=== PATIENT | male | born 1985 | race Caucasian/White ===

== ENCOUNTER 2019-06-26 16:34 | Inpatient (IN) | payer SELFPAY ==
[2019-06-26] MEDS ORDERED: SODIUM CHLORIDE 1,000 ML IV STA (16:43)
--- NOTE | 2019-06-26 16:43 | PDOC ---
Rapid Medical Evaluation Time Seen by Provider: 06/26/19 16:41 Medical Evaluation: Allergies Allergy/AdvReac Type Severity Reaction Status Date / Time No Known Allergies Allergy Verified 10/09/11 05:36 06/26/19 16:41 CC: Intermittent epigastric pain x4 days PE: Diaphoretic. Abd SNTND Orders: labs, urine, EKG Patient will proceed to ER for further evaluation. Discharge Disposition - Diagnosis Epigastric abdominal pain - Referrals - Patient Instructions - Post Discharge Activity
[2019-06-26] MEDS ORDERED: MAG HYDROX/AL HYDROX/SIMETH 30 ML UNIT-DOSE CUP PO ONE (16:44)
[2019-06-26 17:15] LABS: BASO % 0.6 % (0-2.0); EOS % 0.9 % (0-4.5); HEMATOCRIT 46.8 % (35.4-49); HEMOGLOBIN 16.1 GM/dL (11.7-16.9); LYMPH % 9.5 % (8-40); MCH 27.6 pg (25.7-33.7); MCHC 34.4 g/dl (32.0-35.9); MEAN CELL VOLUME 80.3 fl (80-96); MEAN PLT VOLUME 9.6 fl (7.5-11.1); MONO % 7.2 % (3.8-10.2); NEUT % 81.8 % (42.8-82.8); PLATELET COUNT 239 K/MM3 (134-434); RBC 5.83 M/mm3 (4.00-5.60); RDW 13.6 % (11.9-15.9); WHITE BLOOD COUNT 15.9 K/mm3 (4.0-10.0)
[2019-06-26 17:19] LABS: EPI CELLS 1.8 /HPF (0-5/HPF); HYALINE CASTS 0 /lpf (0-8); PH,URINE 6.5 (5.0-8.0); URINE APPEARANCE CLEAR; URINE BILIRUBIN NEGATIVE (NEGATIVE); URINE COLOR YELLOW; URINE GLUCOSE (UA) 3+ (NEGATIVE); URINE KETONE TRACE (NEGATIVE); URINE LEUK ESTERASE NEGATIVE (NEGATIVE); URINE NITRITE NEGATIVE (NEGATIVE); URINE PROTEIN 2+ (NEGATIVE); URINE RBC 11 /hpf (0-4); URINE WBC 8 /hpf (0-5)
[2019-06-26] MEDS ORDERED: MAG HYDROX/AL HYDROX/SIMETH 30 ML UNIT-DOSE CUP ONE (17:32)
[2019-06-26 17:50] LABS: ALBUMIN 3.4 g/dl (3.4-5.0); ALK PHOS 129 U/L (45-117); ANION GAP 10 MMOL/L (8-16); BLOOD UREA NITROGEN 6.1 mg/dL (7-18); CALCIUM 8.8 mg/dL (8.5-10.1); CHLORIDE 95 mmol/L (98-107); CO2 28 mmol/L (21-32); CREATININE 0.9 mg/dL (0.55-1.3); GLUCOSE,RANDOM 321 mg/dL (74-106); LIPASE 136 U/L (73-393); POTASSIUM 3.6 mmol/L (3.5-5.1); SGOT/AST 28 U/L (15-37); SGPT/ALT 50 U/L (13-61); SODIUM 132 mmol/L (136-145); TOT PROT 7.9 g/dl (6.4-8.2)
[2019-06-26] MEDS ORDERED: ACETAMINOPHEN 1000 MG/100 ML VIAL (NON FORMULARY) IVPB ONE (17:50)
[2019-06-26] MEDS ORDERED: ACETAMINOPHEN INJECTION 100 ML IVPB ONE (18:07)
[2019-06-26] MEDS ORDERED: SODIUM CHLORIDE 0.9% 1000 ML INFUS.BAG IV ONE (18:10)
[2019-06-26 18:34] LABS: VENOUS PC02 39.3 mmHg (38-52); VENOUS PH 7.45 (7.31-7.41)
[2019-06-26 18:35] LABS: VENOUS PO2 < 49 mmHg (28-48)
--- NOTE | 2019-06-26 18:44 | PDOC ---
Documentation entered by Melissa Shin SCRIBE, acting as scribe for Araceli Guerra DO. Araceli Guerra, DO: This documentation has been prepared by the Kip brown Xhesika, SCRIBE, under my direction and personally reviewed by me in its entirety. I confirm that the documentation accurately reflects all work, treatment, procedures, and medical decision making performed by me. Attending Attestation - Resident Resident Name: Annette Richard - ED Attending Attestation I have performed the following: I have examined & evaluated the patient, The case was reviewed & discussed with the resident, I agree w/resident's findings & plan, Exceptions are as noted - HPI HPI: 06/26/19 18:20 The patient is a 34 year old male with no significant PMH of who presents to the emergency department for fever and RUQ pain x2 days. Patient states he endorses associated nbnb vomiting and nausea. Patient has not been able to have a full meal since Monday (4 days ago). The patient denies chest pain, shortness of breath, headache and dizziness. Denies chills, cough, diarrhea and constipation. Denies dysuria, frequency, urgency and hematuria. Allergies: NKDA - Physicial Exam PE: 06/26/19 18:24 GENERAL: Awake, alert, and fully oriented, in no acute distress. + diaphoretic sweating HEAD: No signs of trauma NECK: Normal ROM, supple, no lymphadenopathy, JVD, or masses LUNGS: Breath sounds equal, clear to auscultation bilaterally. No wheezes, and no crackles HEART: +tachycardia. Normal S1 and S2, no murmurs, rubs or gallops ABDOMEN: + Epigastric tenderness. + mild L CVA tenderness. Soft, normoactive bowel sounds. No guarding, no rebound. No masses EXTREMITIES: Normal range of motion, no edema. No clubbing or cyanosis. No cords, erythema, or tenderness NEUROLOGICAL: Cranial nerves II through XII grossly intact. Normal speech, normal gait SKIN: Warm, Dry, normal turgor, no rashes or lesions noted. - Critical Care Time Total Critical Care Time: 45 Critical Care Statement: The care of this patient involved high complexity decision making to prevent further life threatening deterioration of the patient 's condition and/or to evaluate & treat vital organ system(s) failure or risk of failure. - Medical Decision Making 06/26/19 18:41 I, Dr. Araceli Guerra, DO, attest that this document has been prepared under my direction and personally reviewed by me in its entirety. I further attest, that it accurately reflects all work, treatment, procedures and medical decision -making performed by me. a/p: 34yo male with fever today and 2 days of abd pain assoc with nausea/ vomiting today -labs sent from [facility] reviewed -pt with glu 321- concern for new onset dm -added on vbg and acetone and a1c -will start ivf hydraiton -bedside ultrasound of RUQ neg for acute biliary pathology -ua + blood, may be from dm -pt also with epigastric ttp -will hydrate, will give tylenol, will monitor and reassess 06/26/19 21:48 pt with new onset dm a1c 10 also with acute pancreatitis on ct pt updated on labs and ct findings npo ordered insulin ordered ivf running pt will need to be admitted microblog sent to [facility] for admission 06/26/19 22:20 case discussed with [facility] who accepts pt to service Discharge - Discharge Information Problems reviewed: Yes Clinical Impression/Diagnosis: Epigastric abdominal pain, Diabetes mellitus, new onset, Acute pancreatitis Condition: Guarded - Admission Yes - Follow up/Referral - Patient Discharge Instructions - Post Discharge Activity Heart Score/ECG Review - ECG Intrepretation Comment:: 06/26/19 18:44 sinus at tach at 120, nl axis, nl interval, t wave inversions III, abnl ekg
--- NOTE | 2019-06-26 18:45 | PDOC ---
History of Present Illness - General Chief Complaint: Pain Stated Complaint: CHEST PAIN Time Seen by Provider: 06/26/19 16:41 - History of Present Illness Initial Comments: 06/26/19 18:42 The patient is 34 year old male with no reported significant PMHx who presents to our ED c/o a two day h/o abdominal pain. Pain is epigastric, pulling, and intermittent. No association with food or movement; solo episode of NBNB vomiting earlier today. Subjective fevers/chills. Last full meal was an egg and cheese sandwich on Monday morning, states he vomited some soup this afternoon. Denies any associated dysuria/hematuria, shortness of breath, palpitations, chest pain, numbness/tingling. NKDA Surgical: none reported Past History - Past Medical History Allergies/Adverse Reactions: Allergies Allergy/AdvReac Type Severity Reaction Status Date / Time No Known Allergies Allergy Verified 06/26/19 16:55 Home Medications: Ambulatory Orders NK [No Known Home Medication] 06/26/19 COPD: No - Psycho Social/Smoking Cessation Hx Smoking Status: No Smoking History: Never smoked Number of Cigarettes Smoked Daily: 0 Information on smoking cessation initiated: No Hx Alcohol Use: No Drug/Substance Use Hx: No Review of Systems - Review of Systems Constitutional: Yes: Fever. No: Chills HEENTM: No: Recent change in vision Respiratory: No: Cough, Shortness of Breath Cardiac (ROS): No: Chest Pain, Lightheadedness, Palpitations ABD/GI: Yes: Vomiting, Abdominal cramping. No: Constipated, Diarrhea, Nausea : No: Burning, Hematuria *Physical Exam - Vital Signs Last Vital Signs Temp Pulse Resp BP Pulse Ox 100.2 F H 121 H 24 H 146/100 97 06/26/19 16:42 06/26/19 18:17 06/26/19 18:17 06/26/19 18:17 06/26/19 18:17 - Physical Exam General Appearance: Yes: Nourished, Appropriately Dressed, Obese HEENT: positive: Normal Voice, Hearing Grossly Normal Neck: positive: Trachea midline, Supple Respiratory/Chest: positive: Lungs Clear, Normal Breath Sounds. negative: Labored Respiration, Rapid RR Cardiovascular: positive: S1, S2. negative: JVD, Murmur Gastrointestinal/Abdominal: positive: Other (Epigastric TTP w/o peritoneal sign , (-) Crane's, mild L sided CVAT ) Extremity: positive: Normal Capillary Refill, Normal Inspection Integumentary: positive: Normal Color, Dry, Warm, Diaphoresis Neurologic: positive: carbon brush maker II-XII NML intact, Fully Oriented, Alert ED Treatment Course - LABORATORY CBC & Chemistry Diagram: 06/26/19 16:58 06/26/19 16:58 - ADDITIONAL ORDERS Additional order review: Laboratory Results 06/26/19 06/26/19 06/26/19 18:10 16:58 16:58 VBG pH 7.45 H POC VBG pCO2 39.3 POC VBG pO2 < 49 H VBG HCO3 27.2 VBG O2 Sat (Fredo) 65.3 L VBG Base Excess 3.6 H Sodium 132 L Potassium 3.6 Chloride 95 L Carbon Dioxide 28 Anion Gap 10 BUN 6.1 L Creatinine 0.9 Est GFR (CKD-EPI)AfAm 130.52 Est GFR (CKD-EPI)NonAf 112.62 Random Glucose 321 H Calcium 8.8 Total Bilirubin 1.0 AST 28 ALT 50 Alkaline Phosphatase 129 H Creatine Kinase 100 Troponin I < 0.02 Total Protein 7.9 Albumin 3.4 Lipase 136 Urine Color Yellow Urine Appearance Clear Urine pH 6.5 Ur Specific [place] 1.042 H Urine Protein 2+ H Urine Glucose (UA) 3+ H Urine Ketones Trace H Urine Blood 1+ H Urine Nitrite Negative Urine Bilirubin Negative Urine Urobilinogen 2.0 Ur Leukocyte Esterase Negative Urine WBC (Auto) 8 Urine RBC (Auto) 11 Urine Casts (Auto) 0 U Epithel Cells (Auto) 1.8 Urine Bacteria (Auto) 17.0 06/26/19 16:58 RBC 5.83 H MCV 80.3 MCHC 34.4 RDW 13.6 MPV 9.6 Neutrophils % 81.8 Lymphocytes % 9.5 Monocytes % 7.2 Eosinophils % 0.9 Basophils % 0.6 - Medications Given in the ED: ED Medications Discontinued Medications Generic Name Dose Route Start Last Admin Trade Name Freq PRN Reason Stop Dose Admin Acetaminophen 1,000 mg 06/26/19 17:50 06/26/19 18:19 Ofirmev Injection - IVPB 06/26/19 17:51 1,000 mg ONCE ONE Administration Al Hydroxide/Mg Hydroxide 30 ml 06/26/19 16:44 06/26/19 17:41 Mylanta Oral Suspension - PO 06/26/19 16:45 30 ml ONCE ONE Administration Sodium Chloride 1,000 mls @ 1,000 mls/hr 06/26/19 16:43 06/26/19 18:19 Normal Saline - IV 06/26/19 17:42 1,000 mls/hr ASDIR STA Administration Medical Decision Making - Medical Decision Making 06/26/19 18:50 34 year old male with no reported significant PMH presents with abdominal pain, solo episode of emesis. Tachycardic (124), Temperature (100.2) Abdominal TTP w/o peritoneal sign; ? R sided CVAT Labs ordered in triage include Lipase, Basic labs, Troponin. EKG pending. Frontal diagnosis: sepsis, r/o ACS, pancreatitis, biliary colic, appendicitis, colitis, gastritis, gastroenteritis. Consider PE - will fluid resuscitate, treat fever and then reassess. Will also hydrate, obtain blood cultures, CXR. Tylenol for fever. 06/26/19 19:25 Leukocytosis (15.9) BS 321 UA (+) ketones, (+) hematuria ? new onset DM vs renal stone VBG, Serum Acetone pending. RUQ POCUS shows no cholelithiasis, no pericholecystic fluid, no AGBW thickening. CTAP pending to evaluate for renal stone, other GI pathology. Patient signed out to Dr. Guerra for further management. Discharge - Discharge Information Problems reviewed: Yes Clinical Impression/Diagnosis: Epigastric abdominal pain Condition: Fair - Follow up/Referral - Patient Discharge Instructions - Post Discharge Activity
[2019-06-26] MEDS ORDERED: LACTATED RINGERS SOLUTION 1000 ML INFUS.BAG IV ONE (21:39)
[2019-06-26] MEDS ORDERED: INSULIN REGULAR HUMAN 100 UNITS/ML *VIAL SQ ONE (21:40)
--- NOTE | 2019-06-26 23:13 | HP ---
CHIEF COMPLAINT: abdominal pain PCP: none HISTORY OF PRESENT ILLNESS: 34 y.o. M no significant past medical history presenting with 04/03 midepigastric pain. Patient says the pain started after eating a posada egg and cheese on Monday06/23/19. The pain is intermittent and radiates to b/l back. He tried Tylenol at home with mild improvement of pain. There are no exacerbating factors. Pt says he has never taken NSAIDS and only uses tylenol for mild pains. Diet consist of mainly fried & fatty foods. On ROS, pt endorses decreased appetite, diaphoresis, chills, generalized weakness. Neg for weight changes/ CP/ nausea/ vomiting/ urinary or bowel changes / myalgias. ER course was notable for: (1) 2L NS; 1L LR (2) 1g IV tylenol (3)CT abd pel confirms acute pancreatitis Recent Travel: denies PAST MEDICAL HISTORY: none PAST SURGICAL HISTORY: none Social History: Lives w/ mom, dad, siblings. no sick contacts. works at [employer] Smoking: denies Alcohol: denies Drugs: denies Allergies No Known Allergies Allergy (Verified 06/26/19 16:55) FH: sister- lymphoma mom- DM HOME MEDICATIONS: Home Medications Medication Instructions Recorded NK [No Known Home Medication] 06/26/19 REVIEW OF SYSTEMS CONSTITUTIONAL: Absent: fever, chills, diaphoresis, generalized weakness, malaise, loss of appetite, weight change HEENT: Absent: rhinorrhea, nasal congestion, throat pain, throat swelling, difficulty swallowing, mouth swelling, ear pain, eye pain, visual changes CARDIOVASCULAR: Absent: chest pain, syncope, palpitations, irregular heart rate, lightheadedness , peripheral edema RESPIRATORY: Absent: cough, shortness of breath, dyspnea with exertion, orthopnea, wheezing, stridor, hemoptysis GASTROINTESTINAL: Absent: abdominal pain, abdominal distension, nausea, vomiting, diarrhea, constipation, melena, hematochezia GENITOURINARY: Absent: dysuria, frequency, urgency, hesitancy, hematuria, flank pain, genital pain MUSCULOSKELETAL: Absent: myalgia, arthralgia, joint swelling, back pain, neck pain SKIN: Absent: rash, itching, pallor HEMATOLOGIC/IMMUNOLOGIC: Absent: easy bleeding, easy bruising, lymphadenopathy, frequent infections ENDOCRINE: Absent: unexplained weight gain, unexplained weight loss, heat intolerance, cold intolerance NEUROLOGIC: Absent: headache, focal weakness or paresthesias, dizziness, unsteady gait, seizure, mental status changes, bladder or bowel incontinence PSYCHIATRIC: Absent: anxiety, depression, suicidal or homicidal ideation, hallucinations. PHYSICAL EXAMINATION Vital Signs - 24 hr 06/26/19 06/26/19 06/26/19 16:42 18:17 19:09 Temperature 100.2 F H Pulse Rate 124 H Pulse Rate [ 121 H 113 H Radial] Respiratory 19 24 H 24 H Rate Blood Pressure 122/80 Blood Pressure 146/100 140/77 [Left Arm] O2 Sat by Pulse 97 97 99 Oximetry (%) 06/26/19 22:23 Temperature 100.0 F H Pulse Rate Pulse Rate [ 100 H Radial] Respiratory 19 Rate Blood Pressure Blood Pressure 152/76 [Left Arm] O2 Sat by Pulse 99 Oximetry (%) GENERAL: AOx3 NAD. HEENT: No scleral icterus, no conjunctival injection, MMM LUNGS: Breath sounds equal, clear to auscultation bilaterally. No wheezes, and no crackles. No accessory muscle use. HEART: Regular rate and rhythm, normal S1 and S2 without murmur, rub or gallop. ABDOMEN: Obese. TTP midepigastric region. Soft, not distended, normoactive bowel sounds, no guarding, no rebound. No hepatomegaly or splenomegaly. [place] negative. MUSCULOSKELETAL: Normal range of motion at all joints. UPPER EXTREMITIES: 2+ pulses, warm, well-perfused. No cyanosis. No clubbing. No peripheral edema. LOWER EXTREMITIES: 2+ pulses, warm, well-perfused. No calf tenderness. No peripheral edema. PSYCHIATRIC: Cooperative. Good eye contact. Appropriate mood and affect. SKIN: Warm, dry, normal turgor, no rashes or lesions noted. Laboratory Results - last 24 hr 06/26/19 06/26/19 06/26/19 16:58 16:58 16:58 WBC 15.9 H RBC 5.83 H Hgb 16.1 Hct 46.8 MCV 80.3 MCH 27.6 MCHC 34.4 RDW 13.6 Plt Count 239 MPV 9.6 Absolute Neuts (auto) 13.0 H Neutrophils % 81.8 Lymphocytes % 9.5 Monocytes % 7.2 Eosinophils % 0.9 Basophils % 0.6 Nucleated RBC % 0 VBG pH POC VBG pCO2 POC VBG pO2 VBG HCO3 VBG O2 Sat (Fredo) VBG Base Excess Sodium 132 L Potassium 3.6 Chloride 95 L Carbon Dioxide 28 Anion Gap 10 BUN 6.1 L Creatinine 0.9 Est GFR (CKD-EPI)AfAm 130.52 Est GFR (CKD-EPI)NonAf 112.62 Random Glucose 321 H Hemoglobin A1c % Calcium 8.8 Total Bilirubin 1.0 AST 28 ALT 50 Alkaline Phosphatase 129 H Creatine Kinase 100 Troponin I < 0.02 Total Protein 7.9 Albumin 3.4 Lipase 136 Urine Color Yellow Urine Appearance Clear Urine pH 6.5 Ur Specific [place] 1.042 H Urine Protein 2+ H Urine Glucose (UA) 3+ H Urine Ketones Trace H Urine Blood 1+ H Urine Nitrite Negative Urine Bilirubin Negative Urine Urobilinogen 2.0 Ur Leukocyte Esterase Negative Urine WBC (Auto) 8 Urine RBC (Auto) 11 Urine Casts (Auto) 0 U Epithel Cells (Auto) 1.8 Urine Bacteria (Auto) 17.0 Acetone, Qual 06/26/19 06/26/19 06/26/19 18:10 18:10 18:10 WBC RBC Hgb Hct MCV MCH MCHC RDW Plt Count MPV Absolute Neuts (auto) Neutrophils % Lymphocytes % Monocytes % Eosinophils % Basophils % Nucleated RBC % VBG pH 7.45 H POC VBG pCO2 39.3 POC VBG pO2 < 49 H VBG HCO3 27.2 VBG O2 Sat (Fredo) 65.3 L VBG Base Excess 3.6 H Sodium Potassium Chloride Carbon Dioxide Anion Gap BUN Creatinine Est GFR (CKD-EPI)AfAm Est GFR (CKD-EPI)NonAf Random Glucose Hemoglobin A1c % 10.9 H Calcium Total Bilirubin AST ALT Alkaline Phosphatase Creatine Kinase Troponin I Total Protein Albumin Lipase Urine Color Urine Appearance Urine pH Ur Specific [place] Urine Protein Urine Glucose (UA) Urine Ketones Urine Blood Urine Nitrite Urine Bilirubin Urine Urobilinogen Ur Leukocyte Esterase Urine WBC (Auto) Urine RBC (Auto) Urine Casts (Auto) U Epithel Cells (Auto) Urine Bacteria (Auto) Acetone, Qual Negative ASSESSMENT/PLAN: 34 y.o. M no significant PMH presenting for 7/10 midepigastric pain. #Acute pancreatitis -CT abd/ pel: Acute pancreatitis. dffuse hepatic steatosis. Mild splenomegaly. 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 - New Patient This patient is new to me today: Yes Date on this admission: 06/27/19 - Critical Care Critical Care patient: Yes Total Critical Care Time (in minutes): 42 Critical Care Statement: The care of this patient involved high complexity decision making to prevent further life threatening deterioration of the patient 's condition and/or to evaluate & treat vital organ system(s) failure or risk of failure. ATTENDING PHYSICIAN STATEMENT I saw and evaluated the patient. I reviewed the resident's note and discussed the case with the resident. I agree with the resident's findings and plan as documented. SUBJECTIVE: OBJECTIVE: ASSESSMENT AND PLAN:
[2019-06-26] MEDS ORDERED: LACTATED RINGERS SOLUTION 1,000 ML IV SCH (23:30)
[2019-06-27] MEDS ORDERED: INSULIN SLIDING SCALE (NOVOLOG) 1 VIAL SQ SCH ×3 (00:30→07:00)
[2019-06-27 00:43] LABS: COCAINE, UR NEGATIVE ng/ml (CUTOFF=300); METHADONE, UR NEGATIVE ng/ml (CUTOFF=300); OPIATES, URI NEGATIVE ng/ml (CUTOFF=300); PHENCYCLIDINE,URINE NEGATIVE ng/ml (CUTOFF=25); URINE AMPHETAMINES NEGATIVE ng/ml (CUTOFF=500); URINE BARBITURATES NEGATIVE ng/ml (CUTOFF=200); URINE BENZODIAZEPINES NEGATIVE ng/ml (CUTOFF=200)
[2019-06-27 01:04] LABS: CHOLESTEROL 331 mg/dL (50-200); HDL CHOLESTEROL 20 mg/dL (40-60); LDL CHOLESTEROL (ONLY SJRH) 88 mg/dL (5-100); TRIGLYCERIDES 1139 mg/dL (0-150)
[2019-06-27] MEDS ORDERED: INSULIN REGULAR 100 UNITS in SODIUM CHLORIDE 99 ML IVPB SCH ×2 (01:30→06:38)
--- NOTE | 2019-06-27 01:34 | PN ---
Teaching Attending Note Name of Resident: Catherine Sanchez ATTENDING PHYSICIAN STATEMENT I saw and evaluated the patient. I reviewed the resident's note and discussed the case with the resident. I agree with the resident's findings and plan as documented. SUBJECTIVE: 34yo morbidly obese man whose diet consists mainly of fatty foods c/o epigastric abdominal pain since this past monday with some slight radiation to his back. Pain was worsened after he ate chicken wings wed . No nausea , vomiting, or diarrhea. Reports some intermittent subjective fevers and sweats. No sick contacts or recent travels, works at [employer]. No cough, dysuria, or diarrhea. Denied etoh abuse, gallstones, abd trauma. Pt does not regularly follow with PCP and does not remember last Dr. visit. OBJECTIVE: Last Vital Signs Temp Pulse Resp BP Pulse Ox 100.0 F H 76 19 146/60 99 06/27/19 01:28 06/27/19 01:28 06/27/19 01:28 06/27/19 01:28 06/27/19 01:28 gen- morbidly obese, diaphoretic heent -atraumatic chest clear abdomen- soft, decreased bowel sounds, epigastric tenderness Abnormal Lab Results 06/26/19 06/26/19 06/26/19 16:58 16:58 16:58 WBC 15.9 H RBC 5.83 H Absolute Neuts (auto) 13.0 H VBG pH POC VBG pO2 VBG O2 Sat (Fredo) VBG Base Excess Sodium 132 L Chloride 95 L BUN 6.1 L Random Glucose 321 H Hemoglobin A1c % Alkaline Phosphatase 129 H Triglycerides Cholesterol HDL Cholesterol Ur Specific [place] 1.042 H Urine Protein 2+ H Urine Glucose (UA) 3+ H Urine Ketones Trace H Urine Blood 1+ H 06/26/19 06/26/19 06/27/19 18:10 18:10 00:10 WBC RBC Absolute Neuts (auto) VBG pH 7.45 H POC VBG pO2 < 49 H VBG O2 Sat (Fredo) 65.3 L VBG Base Excess 3.6 H Sodium Chloride BUN Random Glucose Hemoglobin A1c % 10.9 H Alkaline Phosphatase Triglycerides 1139 H Cholesterol 331 H HDL Cholesterol 20 L Ur Specific [place] Urine Protein Urine Glucose (UA) Urine Ketones Urine Blood imaging reviewed- abdomen/pelvis CT- acute pancreatitis, fatty liver, splenomegally. ASSESSMENT AND PLAN: #Critically ill 34 yo morbidly obese man with acute pancreatitis secondary to hypertriglyceridemia. Newly discovered diabetes mellitus -a1c -10.9. Severe hyperglycemia, but do not suspect DKA at this time. Likely metabolic syndrome. Fatty liver secondary to high fat diet. Pseudohyponatremia secondary to hyperglycemia. 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 May be from pancreatitis. -blood cultures, urine culture sent -monitor off antibiotics -if worsening wbc count or fever spike, would cover with broad spectrum antibiotics -dvt ppx -35 mins spent on this critically ill patient
--- NOTE | 2019-06-27 01:42 | CONSULT ---
Consultation: REQUESTING PROVIDER: Dr Guerra CONSULT REQUEST: We have been asked to medically evaluate this patient for ( Pancreatitis). HISTORY OF PRESENT ILLNESS: Pt is a 34 y/o M with no known past medical history who presented to [facility] due to abdominal pain. Pain commenced this past Monday after eating a posada and egg sandwich; pain located in the mid-epigastrium; pain radiates to his back and is described as a "squeezing" pain. OTC medications have provided no relief. Pain is associated w/ a decreased appetite as well as one episode of vomiting. Denies ever experiencing these symptoms before. ICU team consulted as patient's Triglyceride levels was 1139 and CTAP revealed Pancreatitis. REVIEW OF SYSTEMS: CONSTITUTIONAL: Absent: fever, chills, diaphoresis, generalized weakness, malaise, loss of appetite, weight change HEENT: Absent: rhinorrhea, nasal congestion, throat pain, throat swelling, difficulty swallowing, mouth swelling, ear pain, eye pain, visual changes CARDIOVASCULAR: Absent: chest pain, syncope, palpitations, irregular heart rate, lightheadedness , peripheral edema RESPIRATORY: Absent: cough, shortness of breath, dyspnea with exertion, orthopnea, wheezing, stridor, hemoptysis GASTROINTESTINAL: PRESENT: abdominal pain, nausea, vomiting GENITOURINARY: Absent: dysuria, frequency, urgency, hesitancy, hematuria, flank pain, genital pain MUSCULOSKELETAL: Absent: myalgia, arthralgia, joint swelling, back pain, neck pain SKIN: Absent: rash, itching, pallor HEMATOLOGIC/IMMUNOLOGIC: Absent: easy bleeding, easy bruising, lymphadenopathy, frequent infections ENDOCRINE: Absent: unexplained weight gain, unexplained weight loss, heat intolerance, cold intolerance NEUROLOGIC: Absent: headache, focal weakness or paresthesias, dizziness, unsteady gait, seizure, mental status changes, bladder or bowel incontinence PSYCHIATRIC: Absent: anxiety, depression, suicidal or homicidal ideation, hallucinations. PHYSICAL EXAMINATION Vital Signs - 24 hr 06/26/19 06/26/19 06/26/19 16:42 18:17 19:09 Temperature 100.2 F H Pulse Rate 124 H Pulse Rate [ 121 H 113 H Radial] Respiratory 19 24 H 24 H Rate Blood Pressure 122/80 Blood Pressure 146/100 140/77 [Left Arm] O2 Sat by Pulse 97 97 99 Oximetry (%) 06/26/19 06/27/19 06/27/19 22:23 00:18 01:28 Temperature 100.0 F H 100.0 F H Pulse Rate Pulse Rate [ 100 H 76 Radial] Respiratory 19 19 Rate Blood Pressure Blood Pressure 152/76 146/60 [Left Arm] O2 Sat by Pulse 99 99 99 Oximetry (%) GENERAL: NAD HEAD: AT/NC EYES: EOMI Sclera clear EARS, NOSE, THROAT: MMM LUNGS: CTAB HEART: RRR S1S2 ABDOMEN: TTP mid-epigastrium, No guarding or rigidity LOWER EXTREMITIES:No CCE NEUROLOGICAL: Cranial nerves II-XII intact. PSYCHIATRIC: Cooperative. Good eye contact. Appropriate mood and affect. SKIN: Warm, dry, normal turgor, no rashes or lesions noted. Laboratory Results - last 24 hr 06/26/19 06/26/19 06/26/19 16:58 16:58 16:58 WBC 15.9 H RBC 5.83 H Hgb 16.1 Hct 46.8 MCV 80.3 MCH 27.6 MCHC 34.4 RDW 13.6 Plt Count 239 MPV 9.6 Absolute Neuts (auto) 13.0 H Neutrophils % 81.8 Lymphocytes % 9.5 Monocytes % 7.2 Eosinophils % 0.9 Basophils % 0.6 Nucleated RBC % 0 VBG pH POC VBG pCO2 POC VBG pO2 VBG HCO3 VBG O2 Sat (Fredo) VBG Base Excess Sodium 132 L Potassium 3.6 Chloride 95 L Carbon Dioxide 28 Anion Gap 10 BUN 6.1 L Creatinine 0.9 Est GFR (CKD-EPI)AfAm 130.52 Est GFR (CKD-EPI)NonAf 112.62 Random Glucose 321 H Hemoglobin A1c % Calcium 8.8 Total Bilirubin 1.0 AST 28 ALT 50 Alkaline Phosphatase 129 H Creatine Kinase 100 Troponin I < 0.02 Total Protein 7.9 Albumin 3.4 Triglycerides Cholesterol Total LDL Cholesterol HDL Cholesterol Lipase 136 Urine Color Yellow Urine Appearance Clear Urine pH 6.5 Ur Specific [place] 1.042 H Urine Protein 2+ H Urine Glucose (UA) 3+ H Urine Ketones Trace H Urine Blood 1+ H Urine Nitrite Negative Urine Bilirubin Negative Urine Urobilinogen 2.0 Ur Leukocyte Esterase Negative Urine WBC (Auto) 8 Urine RBC (Auto) 11 Urine Casts (Auto) 0 U Epithel Cells (Auto) 1.8 Urine Bacteria (Auto) 17.0 Opiates Screen Methadone Screen Barbiturate Screen Phencyclidine Screen Ur Amphetamines Screen MDMA (Ecstasy) Screen Benzodiazepines Screen Cocaine Screen U Marijuana (THC) Screen Alcohol, Quantitative Acetone, Qual 06/26/19 06/26/19 06/26/19 18:10 18:10 18:10 WBC RBC Hgb Hct MCV MCH MCHC RDW Plt Count MPV Absolute Neuts (auto) Neutrophils % Lymphocytes % Monocytes % Eosinophils % Basophils % Nucleated RBC % VBG pH 7.45 H POC VBG pCO2 39.3 POC VBG pO2 < 49 H VBG HCO3 27.2 VBG O2 Sat (Fredo) 65.3 L VBG Base Excess 3.6 H Sodium Potassium Chloride Carbon Dioxide Anion Gap BUN Creatinine Est GFR (CKD-EPI)AfAm Est GFR (CKD-EPI)NonAf Random Glucose Hemoglobin A1c % 10.9 H Calcium Total Bilirubin AST ALT Alkaline Phosphatase Creatine Kinase Troponin I Total Protein Albumin Triglycerides Cholesterol Total LDL Cholesterol HDL Cholesterol Lipase Urine Color Urine Appearance Urine pH Ur Specific [place] Urine Protein Urine Glucose (UA) Urine Ketones Urine Blood Urine Nitrite Urine Bilirubin Urine Urobilinogen Ur Leukocyte Esterase Urine WBC (Auto) Urine RBC (Auto) Urine Casts (Auto) U Epithel Cells (Auto) Urine Bacteria (Auto) Opiates Screen Methadone Screen Barbiturate Screen Phencyclidine Screen Ur Amphetamines Screen MDMA (Ecstasy) Screen Benzodiazepines Screen Cocaine Screen U Marijuana (THC) Screen Alcohol, Quantitative Acetone, Qual Negative 06/27/19 06/27/19 06/27/19 00:10 00:10 00:20 WBC RBC Hgb Hct MCV MCH MCHC RDW Plt Count MPV Absolute Neuts (auto) Neutrophils % Lymphocytes % Monocytes % Eosinophils % Basophils % Nucleated RBC % VBG pH POC VBG pCO2 POC VBG pO2 VBG HCO3 VBG O2 Sat (Fredo) VBG Base Excess Sodium Potassium Chloride Carbon Dioxide Anion Gap BUN Creatinine Est GFR (CKD-EPI)AfAm Est GFR (CKD-EPI)NonAf Random Glucose Hemoglobin A1c % Calcium Total Bilirubin AST ALT Alkaline Phosphatase Creatine Kinase Troponin I Total Protein Albumin Triglycerides 1139 H Cholesterol 331 H Total LDL Cholesterol 88 HDL Cholesterol 20 L Lipase Urine Color Urine Appearance Urine pH Ur Specific [place] Urine Protein Urine Glucose (UA) Urine Ketones Urine Blood Urine Nitrite Urine Bilirubin Urine Urobilinogen Ur Leukocyte Esterase Urine WBC (Auto) Urine RBC (Auto) Urine Casts (Auto) U Epithel Cells (Auto) Urine Bacteria (Auto) Opiates Screen Negative Methadone Screen Negative Barbiturate Screen Negative Phencyclidine Screen Negative Ur Amphetamines Screen Negative MDMA (Ecstasy) Screen Negative Benzodiazepines Screen Negative Cocaine Screen Negative U Marijuana (THC) Screen Negative Alcohol, Quantitative < 3.0 Cancelled Acetone, Qual Active Medications Generic Name Dose Route Start Last Admin Trade Name Freq PRN Reason Stop Dose Admin Chlorhexidine Gluconate 1 applic 06/27/19 22:00 Hibiclens For Decolonization - TP HS JENELLE Enoxaparin Sodium 40 mg 06/27/19 10:00 Lovenox - SQ DAILY JENELLE Lactated Ringer's 1,000 mls @ 200 mls/hr 06/26/19 23:30 06/26/19 23:55 Lactated Ringers Solution IV 200 mls/hr ASDIR JENELLE Administration Insulin Human Regular 100 100 mls @ 12.47 mls/hr 06/27/19 01:30 units/ Sodium Chloride IVPB TITR JENELLE Protocol 0.1 UNITS/KG/HR Insulin Aspart 0 vial 06/27/19 00:30 Novolog Vial Sliding Scale - SQ Q6H [facility] Protocol Mupirocin 1 applic 06/27/19 10:00 Bactroban Ointment (For Decolonization) - NS 07/02/19 09:59 BID JENELLE Pantoprazole Sodium 40 mg 06/27/19 10:00 Protonix Iv IVPUSH DAILY [facility] ASSESSMENT/PLAN: Pt is a 34 y/o M with no known past medical history who presented to [facility] due to abdominal pain. Pt found to have hypertriglyceridemia induced Pancreatitis. #ENDO- Pancreatitis 2/2 Hypertriglyceridemia -Triglyceride level 1162 -CTAP Acute Pancreatitis -Insulin gtt -BGM q1H -D5-LR w/ 20 mEqKCL -Goal to bring Triglyceride level < 500 -Triglyceride levels Q12H -If non-resolving, consider transfer for apheresis -CBC, CMP 6 am. -Ofirmev and Morphine PRN for pain #FEN D5-LR w/ 20 mEq KCL Monitor Electrolytes NPO #DVT ppx: Lovenox 40 SQ Daily Dispo: We will continue to follow the patient. Thank you for this consultative opportunity. Visit type - Emergency Visit Emergency Visit: Yes ED Registration Date: 06/26/19 Care time: The patient presented to the Emergency Department on the above date and was hospitalized for further evaluation of their emergent condition. - New Patient This patient is new to me today: Yes Date on this admission: 06/28/19 - Critical Care Critical Care patient: Yes Total Critical Care Time (in minutes): 35 Critical Care Statement: The care of this patient involved high complexity decision making to prevent further life threatening deterioration of the patient 's condition and/or to evaluate & treat vital organ system(s) failure or risk of failure.
[2019-06-27] MEDS ORDERED: KCL 10 MEQ IVPB 10 MEQ/100 ML INFUS.BAG IVPB SCH ×2 (02:30→07:45)
[2019-06-27] MEDS: D5-LR+20 MEQ KCL - 20 MEQ/1,000 ML INFUS.BAG IV SCH ×3 (02:59→14:30)
[2019-06-27] MEDS ORDERED: ACETAMINOPHEN 1000 MG/100 ML VIAL (NON FORMULARY) IVPB PRN (03:10)
[2019-06-27] MEDS: MORPHINE SULFATE 2 MG/ML VIAL IVPUSH PRN ×2 (03:25→22:45)
[2019-06-27 04:20] LABS: BLOOD UREA NITROGEN 7.8 mg/dL (7-18); CALCIUM 8.1 mg/dL (8.5-10.1); CREATININE 0.8 mg/dL (0.55-1.3); POTASSIUM 3.5 mmol/L (3.5-5.1)
[2019-06-27 07:15] LABS: HEMATOCRIT 39.8 % (35.4-49); HEMOGLOBIN 13.9 GM/dL (11.7-16.9); MCHC 34.9 g/dl (32.0-35.9); MEAN CELL VOLUME 80.3 fl (80-96); MEAN PLT VOLUME 9.3 fl (7.5-11.1); PLATELET COUNT 205 K/MM3 (134-434); RBC 4.95 M/mm3 (4.00-5.60); RDW 13.5 % (11.9-15.9); WHITE BLOOD COUNT 11.5 K/mm3 (4.0-10.0)
[2019-06-27 07:42] LABS: AMYLASE 16 U/L (25-115); CHOLESTEROL 305 mg/dL (50-200); HDL CHOLESTEROL 21 mg/dL (40-60); LDL CHOLESTEROL (ONLY SJRH) 91 mg/dL (5-100); TRIGLYCERIDES 944 mg/dL (0-150)
[2019-06-27 07:43] LABS: ALBUMIN 3.1 g/dl (3.4-5.0); BILIRUBIN,TOTAL 0.8 mg/dL (0.2-1); BLOOD UREA NITROGEN 8.3 mg/dL (7-18); CALCIUM 8.4 mg/dL (8.5-10.1); CREATININE 0.8 mg/dL (0.55-1.3); MAGNESIUM 2.3 mg/dL (1.8-2.4); PHOSPHOROUS 2.8 mg/dL (2.5-4.9); POTASSIUM 3.6 mmol/L (3.5-5.1); TOT PROT 6.9 g/dl (6.4-8.2)
--- NOTE | 2019-06-27 10:01 | PN ---
Addendum entered and electronically signed by Zeeshan Holm, RESIDENT 06/27/19 10:34: CORRECTION: Q12h Trigs level Original Note: Progress Note (short form) - Note Progress Note: HPI: Pt found to have pancreatitis with normal lipase value attributed to hypertriglyceridemia. Pt reports he has no familial history of elevated TG or HDL, pancreatitis. Pt's pain is markedly improved and he remains without nausea or further vomiting at this time. He also reports being hungry as well. Denies any fever/chills, nausea, vomiting, chest pain, palpitations, shortness of breath. PE: Vital Signs Temperature 99.4 F 06/27/19 03:04 Pulse Rate 102 H 06/27/19 10:00 Respiratory Rate 16 06/27/19 10:00 Blood Pressure 136/86 06/27/19 10:00 O2 Sat by Pulse Oximetry (%) 98 06/27/19 08:50 GEN: NAD, awake, alert, and oriented HEENT: NC/AT, [place], no xantholasmas around eyes or depositions in iris, MMM Neck: No JVD LUNGS: CTA b/l including bases. no wheezes. On RA CARD: RRR no murmurs ABD: soft, nondistendend, normoactive BS, tenderness midepigastric region with palpitation, no rebound, voluntary guarding, no ecchymotic regions noted. No hepatomegaly EXT: No edema, well perfused peripheral limbs SKIN: No jaundice CBC, BMP 06/27/19 06:10 06/27/19 06:10 Hepatic Panel Total Bilirubin 0.8 mg/dL (0.2-1) 06/27/19 06:10 AST 18 U/L (15-37) 06/27/19 06:10 ALT 42 U/L (13-61) 06/27/19 06:10 Alkaline Phosphatase 106 U/L (45-117) 06/27/19 06:10 Albumin 3.1 g/dl (3.4-5.0) L 06/27/19 06:10 Active Medications Acetaminophen (Ofirmev Injection -) 1,000 mg IVPB Q6H PRN PRN Reason: PAIN OR FEVER Last Admin: 06/27/19 08:00 Dose: 1,000 mg Chlorhexidine Gluconate (Hibiclens For Decolonization -) 1 applic TP HS JENELLE Enoxaparin Sodium (Lovenox -) 40 mg SQ DAILY [facility] Last Admin: 06/27/19 10:10 Dose: 40 mg Dextrose/Lactated Ringer's (D5-Lr+20 Meq Kcl -) 20 meq in 1,000 mls @ 200 mls/ hr IV ASDIR [facility] Last Admin: 06/27/19 08:54 Dose: 200 mls/hr Insulin Human Regular 100 (units/ Sodium Chloride) 100 mls @ 6.23 mls/hr IVPB TITR [facility]; Protocol Last Admin: 06/27/19 06:50 Dose: 0.05 units/kg/hr, 6.23 mls/hr Lisinopril (Prinivil) 5 mg PO DAILY [facility] Last Admin: 06/27/19 10:11 Dose: 5 mg Morphine Sulfate (Morphine Sulfate) 2 mg IVPUSH Q6H PRN PRN Reason: PAIN LEVEL 6-10 Last Admin: 06/27/19 03:25 Dose: 2 mg Mupirocin (Bactroban Ointment (For Decolonization) -) 1 applic NS BID [facility] Stop: 07/02/19 09:59 Last Admin: 06/27/19 10:11 Dose: 1 applic Pantoprazole Sodium (Protonix Iv) 40 mg IVPUSH DAILY [facility] Last Admin: 06/27/19 10:11 Dose: 40 mg A/P Hypertrigliceridemia pancreatitis Uncontrolled DM --Insulin gtt titrated to 0.05U/kg/hr due to decreasing glucose despite dextrose --Can increase if pt's glucose increases or plateau's --D5-LR@200cc/hr --Q6h Trig serum --If <500 can d/c insulin gtt and start SQ --May benefit from fenofibrate once DM is controlled --No evidence of familial history; no need for genetic testing --Pt improved with labs WNL --Pain control: Tylenol available PRN Morphine ONLY if severe pain (try to minimize) --NPO with early directed feeding when possible --Zofran PRN for nausea --Lisinopril 5mg qdaily for BP control --OOB as tolerated --Incentive spirometry FEN: Fluids: D5LR@200cc/hr Electrolyte abnormalities: none today Nutrition: NPO with early directed feedings PPX: DVT - Lovenox SQ GI - Protonix qdaily Dispo: ICU monitoring due to titrating insulin gtt; if off can likely transfer to medical floors Case discussed with Dr. Giuseppe Holm, DO - IM PGY-3 <Zeeshan Holm - Last Filed: 06/27/19 10:21> - Note Progress Note: Reviewed history and physical exam as documented in resident note; agree with above aside from as supplemented by myself. Overall he has improved pain from admission FH without history of major GI malignancy. He takes no Rx meds and states he hasn't seen MD in years. VS, labs, imaging reviewed NAD, AAO, resting in bed RRR s1/2 (mild tachy earlier) Obese, Tender diffusely but states improved wihtout distention, herbert, or coronado greer. Imaging reviewed GI consultation requested A/P: Acute pancreatitis 2/2 hyper TG Morbid obesity HyperTG Will plan to titrate off drip following lipids and continue with aggressive hydration and glucose control. Will check A1c, observe on floor, consult nutrition. No foot problems on exam not but providing OP referral to Dr. Valdes. Full Code <Serafin Chin - Last Filed: 06/28/19 00:11>
[2019-06-27] MEDS ORDERED: PT OWN MED DRAWER 7, Y5N ONE (10:09)
[2019-06-27] MEDS: ENOXAPARIN NA (PORCINE) 40 MG/0.4 ML DISP.SYRIN SQ SCH (10:10)
[2019-06-27] MEDS: LISINOPRIL 5 MG TABLET (FP) PO SCH (10:11)
[2019-06-27] MEDS: PANTOPRAZOLE SODIUM 40 MG VIAL IVPUSH SCH (10:11)
[2019-06-27] MEDS: MUPIROCIN 2% TOPICAL OINTMENT FOR DECOLONIZATION NS SCH ×2 (10:11→22:50)
--- NOTE | 2019-06-27 11:56 | PN ---
Teaching Attending Note Name of Resident: Ellis Paulino ATTENDING PHYSICIAN STATEMENT I saw and evaluated the patient. I reviewed the resident's note and discussed the case with the resident. I agree with the resident's findings and plan as documented. SUBJECTIVE: Pt seen and examined in the ICU. Pain better. No nausea or vomiting. Tolerating clears. OBJECTIVE: Vital Signs Period Temp Pulse Resp BP Sys/Campos Pulse Ox Last 24 Hr 98.6 F-100.2 F 76-124 16-24 120-152/60-100 97-99 Intake & Output 06/24/19 06/25/19 06/26/19 06/27/19 23:59 23:59 23:59 23:59 Intake Total 634.5 Output Total 0 Balance 634.5 Weight 124.738 kg 115.575 kg Gen: NAD in chair Heart: RRR Lung: decreased breath sounds at the bases Abd: soft, nontender Ext: no edema CBC, BMP 06/27/19 06:10 06/27/19 06:10 Active Medications Acetaminophen (Ofirmev Injection -) 1,000 mg IVPB Q6H PRN PRN Reason: PAIN OR FEVER Last Admin: 06/27/19 08:00 Dose: 1,000 mg Chlorhexidine Gluconate (Hibiclens For Decolonization -) 1 applic TP HS [facility] Enoxaparin Sodium (Lovenox -) 40 mg SQ DAILY [facility] Last Admin: 06/27/19 10:10 Dose: 40 mg Dextrose/Lactated Ringer's (D5-Lr+20 Meq Kcl -) 20 meq in 1,000 mls @ 200 mls/ hr IV ASDIR [facility] Last Admin: 06/27/19 08:54 Dose: 200 mls/hr Insulin Human Regular 100 (units/ Sodium Chloride) 100 mls @ 6.23 mls/hr IVPB TITR JENELLE; Protocol Last Admin: 06/27/19 06:50 Dose: 0.05 units/kg/hr, 6.23 mls/hr Lisinopril (Prinivil) 5 mg PO DAILY [facility] Last Admin: 06/27/19 10:11 Dose: 5 mg Morphine Sulfate (Morphine Sulfate) 2 mg IVPUSH Q6H PRN PRN Reason: PAIN LEVEL 6-10 Last Admin: 06/27/19 03:25 Dose: 2 mg Mupirocin (Bactroban Ointment (For Decolonization) -) 1 applic NS BID [facility] Stop: 07/02/19 09:59 Last Admin: 06/27/19 10:11 Dose: 1 applic Pantoprazole Sodium (Protonix Iv) 40 mg IVPUSH DAILY [facility] Last Admin: 06/27/19 10:11 Dose: 40 mg ASSESSMENT AND PLAN: Acute Pancreatitis Hypertriglyceridemia DM HTN - continue insulin gtt - monitor BGM, triglycerides - start lopid - pain control - PO as tolerated - IVF resuscitation - monitor lytes - DVT prophylaxis - ICU monitoring while on insulin gtt
[2019-06-27] MEDS: INSULIN REGULAR 100 UNITS in SODIUM CHLORIDE 99 ML IVPB SCH (13:06)
--- NOTE | 2019-06-27 14:14 | PN ---
Physical Exam: SUBJECTIVE: Patient seen and examined at beside. Pt on insulin gtt, improved vastly. OBJECTIVE: Vital Signs Period Temp Pulse Resp BP Sys/Campos Pulse Ox Last 24 Hr 98.6 F-100.2 F 76-124 16-24 120-152/60-100 97-99 GENERAL: The patient is awake, alert, and fully oriented, in no acute distress. NECK: Trachea midline, full range of motion, supple. LUNGS: Breath sounds equal, clear to auscultation bilaterally, no wheezes, no crackles, no accessory muscle use. HEART: tachy and regular rhythm, S1, S2 without murmur, rub or gallop. ABDOMEN: Soft, mild epigastric tenderness EXTREMITIES: 2+ pulses, warm, well-perfused, no edema. SKIN: no coronado greer sign Laboratory Results - last 24 hr 06/26/19 06/26/19 06/26/19 16:58 16:58 16:58 WBC 15.9 H RBC 5.83 H Hgb 16.1 Hct 46.8 MCV 80.3 MCH 27.6 MCHC 34.4 RDW 13.6 Plt Count 239 MPV 9.6 Absolute Neuts (auto) 13.0 H Neutrophils % 81.8 Lymphocytes % 9.5 Monocytes % 7.2 Eosinophils % 0.9 Basophils % 0.6 Nucleated RBC % 0 VBG pH POC VBG pCO2 POC VBG pO2 VBG HCO3 VBG O2 Sat (Fredo) VBG Base Excess Sodium 132 L Potassium 3.6 Chloride 95 L Carbon Dioxide 28 Anion Gap 10 BUN 6.1 L Creatinine 0.9 Est GFR (CKD-EPI)AfAm 130.52 Est GFR (CKD-EPI)NonAf 112.62 POC Glucometer Random Glucose 321 H Hemoglobin A1c % Lactic Acid Calcium 8.8 Phosphorus Magnesium Total Bilirubin 1.0 AST 28 ALT 50 Alkaline Phosphatase 129 H Creatine Kinase 100 Troponin I < 0.02 Total Protein 7.9 Albumin 3.4 Triglycerides Cholesterol Total LDL Cholesterol HDL Cholesterol Total Amylase Lipase 136 Urine Color Yellow Urine Appearance Clear Urine pH 6.5 Ur Specific [place] 1.042 H Urine Protein 2+ H Urine Glucose (UA) 3+ H Urine Ketones Trace H Urine Blood 1+ H Urine Nitrite Negative Urine Bilirubin Negative Urine Urobilinogen 2.0 Ur Leukocyte Esterase Negative Urine WBC (Auto) 8 Urine RBC (Auto) 11 Urine Casts (Auto) 0 U Epithel Cells (Auto) 1.8 Urine Bacteria (Auto) 17.0 Opiates Screen Methadone Screen Barbiturate Screen Phencyclidine Screen Ur Amphetamines Screen MDMA (Ecstasy) Screen Benzodiazepines Screen Cocaine Screen U Marijuana (THC) Screen Alcohol, Quantitative Acetone, Qual 06/26/19 06/26/19 06/26/19 18:10 18:10 18:10 WBC RBC Hgb Hct MCV MCH MCHC RDW Plt Count MPV Absolute Neuts (auto) Neutrophils % Lymphocytes % Monocytes % Eosinophils % Basophils % Nucleated RBC % VBG pH 7.45 H POC VBG pCO2 39.3 POC VBG pO2 < 49 H VBG HCO3 27.2 VBG O2 Sat (Fredo) 65.3 L VBG Base Excess 3.6 H Sodium Potassium Chloride Carbon Dioxide Anion Gap BUN Creatinine Est GFR (CKD-EPI)AfAm Est GFR (CKD-EPI)NonAf POC Glucometer Random Glucose Hemoglobin A1c % 10.9 H Lactic Acid Calcium Phosphorus Magnesium Total Bilirubin AST ALT Alkaline Phosphatase Creatine Kinase Troponin I Total Protein Albumin Triglycerides Cholesterol Total LDL Cholesterol HDL Cholesterol Total Amylase Lipase Urine Color Urine Appearance Urine pH Ur Specific [place] Urine Protein Urine Glucose (UA) Urine Ketones Urine Blood Urine Nitrite Urine Bilirubin Urine Urobilinogen Ur Leukocyte Esterase Urine WBC (Auto) Urine RBC (Auto) Urine Casts (Auto) U Epithel Cells (Auto) Urine Bacteria (Auto) Opiates Screen Methadone Screen Barbiturate Screen Phencyclidine Screen Ur Amphetamines Screen MDMA (Ecstasy) Screen Benzodiazepines Screen Cocaine Screen U Marijuana (THC) Screen Alcohol, Quantitative Acetone, Qual Negative 06/27/19 06/27/19 06/27/19 00:10 00:10 00:20 WBC RBC Hgb Hct MCV MCH MCHC RDW Plt Count MPV Absolute Neuts (auto) Neutrophils % Lymphocytes % Monocytes % Eosinophils % Basophils % Nucleated RBC % VBG pH POC VBG pCO2 POC VBG pO2 VBG HCO3 VBG O2 Sat (Fredo) VBG Base Excess Sodium Potassium Chloride Carbon Dioxide Anion Gap BUN Creatinine Est GFR (CKD-EPI)AfAm Est GFR (CKD-EPI)NonAf POC Glucometer Random Glucose Hemoglobin A1c % Lactic Acid Calcium Phosphorus Magnesium Total Bilirubin AST ALT Alkaline Phosphatase Creatine Kinase Troponin I Total Protein Albumin Triglycerides 1139 H Cholesterol 331 H Total LDL Cholesterol 88 HDL Cholesterol 20 L Total Amylase Lipase Urine Color Urine Appearance Urine pH Ur Specific [place] Urine Protein Urine Glucose (UA) Urine Ketones Urine Blood Urine Nitrite Urine Bilirubin Urine Urobilinogen Ur Leukocyte Esterase Urine WBC (Auto) Urine RBC (Auto) Urine Casts (Auto) U Epithel Cells (Auto) Urine Bacteria (Auto) Opiates Screen Negative Methadone Screen Negative Barbiturate Screen Negative Phencyclidine Screen Negative Ur Amphetamines Screen Negative MDMA (Ecstasy) Screen Negative Benzodiazepines Screen Negative Cocaine Screen Negative U Marijuana (THC) Screen Negative Alcohol, Quantitative < 3.0 Cancelled Acetone, Qual 06/27/19 06/27/19 06/27/19 02:47 03:30 04:04 WBC RBC Hgb Hct MCV MCH MCHC RDW Plt Count MPV Absolute Neuts (auto) Neutrophils % Lymphocytes % Monocytes % Eosinophils % Basophils % Nucleated RBC % VBG pH POC VBG pCO2 POC VBG pO2 VBG HCO3 VBG O2 Sat (Fredo) VBG Base Excess Sodium 136 Potassium 3.5 Chloride 101 Carbon Dioxide 25 Anion Gap 9 BUN 7.8 Creatinine 0.8 Est GFR (CKD-EPI)AfAm 136.99 Est GFR (CKD-EPI)NonAf 118.20 POC Glucometer 257 261 Random Glucose 241 H Hemoglobin A1c % Lactic Acid Calcium 8.1 L Phosphorus Magnesium Total Bilirubin AST ALT Alkaline Phosphatase Creatine Kinase Troponin I Total Protein Albumin Triglycerides Cholesterol Total LDL Cholesterol HDL Cholesterol Total Amylase Lipase Urine Color Urine Appearance Urine pH Ur Specific [place] Urine Protein Urine Glucose (UA) Urine Ketones Urine Blood Urine Nitrite Urine Bilirubin Urine Urobilinogen Ur Leukocyte Esterase Urine WBC (Auto) Urine RBC (Auto) Urine Casts (Auto) U Epithel Cells (Auto) Urine Bacteria (Auto) Opiates Screen Methadone Screen Barbiturate Screen Phencyclidine Screen Ur Amphetamines Screen MDMA (Ecstasy) Screen Benzodiazepines Screen Cocaine Screen U Marijuana (THC) Screen Alcohol, Quantitative Acetone, Qual 06/27/19 06/27/19 06/27/19 05:07 06:04 06:10 WBC 11.5 H RBC 4.95 Hgb 13.9 Hct 39.8 MCV 80.3 MCH 28.0 MCHC 34.9 RDW 13.5 Plt Count 205 MPV 9.3 Absolute Neuts (auto) Neutrophils % Lymphocytes % Monocytes % Eosinophils % Basophils % Nucleated RBC % VBG pH POC VBG pCO2 POC VBG pO2 VBG HCO3 VBG O2 Sat (Fredo) VBG Base Excess Sodium Potassium Chloride Carbon Dioxide Anion Gap BUN Creatinine Est GFR (CKD-EPI)AfAm Est GFR (CKD-EPI)NonAf POC Glucometer 217 188 Random Glucose Hemoglobin A1c % Lactic Acid Calcium Phosphorus Magnesium Total Bilirubin AST ALT Alkaline Phosphatase Creatine Kinase Troponin I Total Protein Albumin Triglycerides Cholesterol Total LDL Cholesterol HDL Cholesterol Total Amylase Lipase Urine Color Urine Appearance Urine pH Ur Specific [place] Urine Protein Urine Glucose (UA) Urine Ketones Urine Blood Urine Nitrite Urine Bilirubin Urine Urobilinogen Ur Leukocyte Esterase Urine WBC (Auto) Urine RBC (Auto) Urine Casts (Auto) U Epithel Cells (Auto) Urine Bacteria (Auto) Opiates Screen Methadone Screen Barbiturate Screen Phencyclidine Screen Ur Amphetamines Screen MDMA (Ecstasy) Screen Benzodiazepines Screen Cocaine Screen U Marijuana (THC) Screen Alcohol, Quantitative Acetone, Qual 06/27/19 06/27/19 06/27/19 06:10 06:10 06:56 WBC RBC Hgb Hct MCV MCH MCHC RDW Plt Count MPV Absolute Neuts (auto) Neutrophils % Lymphocytes % Monocytes % Eosinophils % Basophils % Nucleated RBC % VBG pH POC VBG pCO2 POC VBG pO2 VBG HCO3 VBG O2 Sat (Fredo) VBG Base Excess Sodium 138 Potassium 3.6 Chloride 102 Carbon Dioxide 29 Anion Gap 7 L BUN 8.3 Creatinine 0.8 Est GFR (CKD-EPI)AfAm 136.99 Est GFR (CKD-EPI)NonAf 118.20 POC Glucometer 176 Random Glucose 176 H Hemoglobin A1c % Lactic Acid Calcium 8.4 L Phosphorus 2.8 Magnesium 2.3 Total Bilirubin 0.8 AST 18 ALT 42 Alkaline Phosphatase 106 Creatine Kinase Troponin I Total Protein 6.9 Albumin 3.1 L Triglycerides 944 H Cholesterol 305 H Total LDL Cholesterol 91 HDL Cholesterol 21 L Total Amylase 16 L Lipase Urine Color Urine Appearance Urine pH Ur Specific [place] Urine Protein Urine Glucose (UA) Urine Ketones Urine Blood Urine Nitrite Urine Bilirubin Urine Urobilinogen Ur Leukocyte Esterase Urine WBC (Auto) Urine RBC (Auto) Urine Casts (Auto) U Epithel Cells (Auto) Urine Bacteria (Auto) Opiates Screen Methadone Screen Barbiturate Screen Phencyclidine Screen Ur Amphetamines Screen MDMA (Ecstasy) Screen Benzodiazepines Screen Cocaine Screen U Marijuana (THC) Screen Alcohol, Quantitative Acetone, Qual 06/27/19 06/27/19 06/27/19 08:11 09:28 09:34 WBC RBC Hgb Hct MCV MCH MCHC RDW Plt Count MPV Absolute Neuts (auto) Neutrophils % Lymphocytes % Monocytes % Eosinophils % Basophils % Nucleated RBC % VBG pH POC VBG pCO2 POC VBG pO2 VBG HCO3 VBG O2 Sat (Fredo) VBG Base Excess Sodium Potassium Chloride Carbon Dioxide Anion Gap BUN Creatinine Est GFR (CKD-EPI)AfAm Est GFR (CKD-EPI)NonAf POC Glucometer 170 149 Random Glucose Hemoglobin A1c % Lactic Acid < 0.1 L Calcium Phosphorus Magnesium Total Bilirubin AST ALT Alkaline Phosphatase Creatine Kinase Troponin I Total Protein Albumin Triglycerides Cholesterol Total LDL Cholesterol HDL Cholesterol Total Amylase Lipase Urine Color Urine Appearance Urine pH Ur Specific [place] Urine Protein Urine Glucose (UA) Urine Ketones Urine Blood Urine Nitrite Urine Bilirubin Urine Urobilinogen Ur Leukocyte Esterase Urine WBC (Auto) Urine RBC (Auto) Urine Casts (Auto) U Epithel Cells (Auto) Urine Bacteria (Auto) Opiates Screen Methadone Screen Barbiturate Screen Phencyclidine Screen Ur Amphetamines Screen MDMA (Ecstasy) Screen Benzodiazepines Screen Cocaine Screen U Marijuana (THC) Screen Alcohol, Quantitative Acetone, Qual 06/27/19 06/27/19 06/27/19 10:16 11:09 13:07 WBC RBC Hgb Hct MCV MCH MCHC RDW Plt Count MPV Absolute Neuts (auto) Neutrophils % Lymphocytes % Monocytes % Eosinophils % Basophils % Nucleated RBC % VBG pH POC VBG pCO2 POC VBG pO2 VBG HCO3 VBG O2 Sat (Fredo) VBG Base Excess Sodium Potassium Chloride Carbon Dioxide Anion Gap BUN Creatinine Est GFR (CKD-EPI)AfAm Est GFR (CKD-EPI)NonAf POC Glucometer 227 294 268 Random Glucose Hemoglobin A1c % Lactic Acid Calcium Phosphorus Magnesium Total Bilirubin AST ALT Alkaline Phosphatase Creatine Kinase Troponin I Total Protein Albumin Triglycerides Cholesterol Total LDL Cholesterol HDL Cholesterol Total Amylase Lipase Urine Color Urine Appearance Urine pH Ur Specific [place] Urine Protein Urine Glucose (UA) Urine Ketones Urine Blood Urine Nitrite Urine Bilirubin Urine Urobilinogen Ur Leukocyte Esterase Urine WBC (Auto) Urine RBC (Auto) Urine Casts (Auto) U Epithel Cells (Auto) Urine Bacteria (Auto) Opiates Screen Methadone Screen Barbiturate Screen Phencyclidine Screen Ur Amphetamines Screen MDMA (Ecstasy) Screen Benzodiazepines Screen Cocaine Screen U Marijuana (THC) Screen Alcohol, Quantitative Acetone, Qual Active Medications Generic Name Dose Route Start Last Admin Trade Name Freq PRN Reason Stop Dose Admin Acetaminophen 1,000 mg 06/27/19 03:10 06/27/19 08:00 Ofirmev Injection - IVPB 1,000 mg Q6H PRN Administration PAIN OR FEVER Chlorhexidine Gluconate 1 applic 06/27/19 22:00 Hibiclens For Decolonization - TP HS JENELLE Enoxaparin Sodium 40 mg 06/27/19 10:00 06/27/19 10:10 Lovenox - SQ 40 mg DAILY JENELLE Administration Gemfibrozil 600 mg 06/27/19 14:30 Lopid - PO BID JENELLE Dextrose/Lactated Ringer's 20 meq in 1,000 mls @ 200 mls/hr 06/27/19 03:00 08:54 D5-Lr+20 Meq Kcl - IV 200 mls/hr ASDIR JENELLE Administration Insulin Human Regular 100 100 mls @ 12.47 mls/hr 06/27/19 12:35 06/27/19 13: 06 units/ Sodium Chloride IVPB 0.1 units/kg/hr TITR JENELLE 12.47 mls/hr Administration Protocol 0.1 UNITS/KG/HR Lisinopril 5 mg 06/27/19 10:00 06/27/19 10:11 Prinivil PO 5 mg DAILY JENELLE Administration Morphine Sulfate 2 mg 06/27/19 03:10 06/27/19 03:25 Morphine Sulfate IVPUSH 2 mg Q6H PRN Administration PAIN LEVEL 6-10 Mupirocin 1 applic 06/27/19 10:00 06/27/19 10:11 Bactroban Ointment (For Decolonization) - NS 07/02/19 09:59 1 applic BID JENELLE Administration Pantoprazole Sodium 40 mg 06/27/19 10:00 06/27/19 10:11 Protonix Iv IVPUSH 40 mg DAILY JENELLE Administration ASSESSMENT/PLAN: Pt is a 34 y/o M with no known past medical history who presented to [facility] due to abdominal pain. Pt found to have hypertriglyceridemia induced Pancreatitis. #ENDOCRINE- Pancreatitis 2/2 Hypertriglyceridemia -Triglyceride level 1162 initially - pt started on IV LR and improved abdominal pain. - pt on clear liquid diet will advance as tolerated. -CTAP Acute Pancreatitis -c/w Insulin gtt -D5-LR w/ 20 mEqKCL -Goal to bring Triglyceride level < 500 -Triglyceride levels Q12H -Gemfibrozil 600 BID for hypertriglyceridemia -Ofirmev and Morphine PRN for pain #FENGI D5-LR w/ 20 mEq KCL Monitor Electrolytes REGULAR DIET Lovenox 40mg SQ Protonix #DVT ppx: Lovenox 40 SQ Daily Dispo: We will continue to follow the patient. Thank you for this consultative opportunity. Visit type - Emergency Visit Emergency Visit: Yes ED Registration Date: 06/26/19 Care time: The patient presented to the Emergency Department on the above date and was hospitalized for further evaluation of their emergent condition. - New Patient This patient is new to me today: Yes Date on this admission: 06/27/19 - Critical Care Critical Care patient: Yes Total Critical Care Time (in minutes): 40 Critical Care Statement: The care of this patient involved high complexity decision making to prevent further life threatening deterioration of the patient 's condition and/or to evaluate & treat vital organ system(s) failure or risk of failure. - Discharge Referral Referred to [facility] No
[2019-06-27] MEDS: GEMFIBROZIL 600 MG TABLET (FP) PO SCH ×2 (14:30→22:42)
--- NOTE | 2019-06-27 15:05 | EKG ---
Test Reason : Blood Pressure : / mmHG Vent. Rate : 120 BPM Atrial Rate : 120 BPM P-R Int : 148 ms QRS Dur : 094 ms QT Int : 324 ms P-R-T Axes : 042 067 022 degrees QTc Int : 457 ms SINUS TACHYCARDIA POSSIBLE LATERAL INFARCT , AGE UNDETERMINED POSSIBLE INFERIOR INFARCT , AGE UNDETERMINED ABNORMAL ECG NO PREVIOUS ECGS AVAILABLE Confirmed by MARILYNN VILLALBA MD ([id number]) on 06/27/2019 3:05:11 PM Referred By: Confirmed By:MARILYNN VILLALBA MD
--- NOTE | 2019-06-27 21:45 | CON.GI ---
Consult Consult Specialty:: Gastroenterology Referred by:: Dr Maurizio Chin Reason for Consultation:: Pancreatitis - History of Present Illness Chief Complaint: Severe abdominal pain History of Present Illness: 34M developed epigastric pain after eating posada, eggs and cheese sandwich on the morning of 06/23/19. The pain radiated into his back and was associated with nausea but he did not vomit. He was afraid to eat since the episode as this aggravated his pain. 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 He did weight 320 lbs at one time but has been exercising regularly to bring his weight down. He drank several Henneseys' about 2 weeks ago but does not drink regularly. His CT scan revealed pancreatitis but no gallstones were found on ultrasound. His does have a fatty liver and his triglycerides were 1139 on admission. 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 Place of : [employer] History of Recent Travel: No Home Medications - Allergies Allergies/Adverse Reactions: Allergies Allergy/AdvReac Type Severity Reaction Status Date / Time No Known Allergies Allergy Verified 06/26/19 16:55 - Home Medications Home Medications: Ambulatory Orders NK [No Known Home Medication] 06/26/19 Family Medical History Family Hx Cancer: Brother (cured of leukemia) Family Hx Diabetes: Mother Review of Systems - Review of Systems Constitutional: reports: Loss of Appetite, Malaise Eyes: reports: No Symptoms HENT: reports: No Symptoms Neck: reports: No Symptoms Cardiovascular: reports: No Symptoms Respiratory: reports: No Symptoms Gastrointestinal: reports: Abdominal Pain, Nausea Genitourinary: reports: No Symptoms Musculoskeletal: reports: No Symptoms Neurological: reports: No Symptoms Physical Exam-GI Vital Signs: Vital Signs Temperature 98.2 F 06/27/19 18:00 Pulse Rate 105 H 06/27/19 18:00 Respiratory Rate 20 06/27/19 18:00 Blood Pressure 113/64 06/27/19 18:00 O2 Sat by Pulse Oximetry (%) 98 06/27/19 08:50 CBC,CMP WBC 11.5 K/mm3 (4.0-10.0) H 06/27/19 06:10 RBC 4.95 M/mm3 (4.00-5.60) 06/27/19 06:10 Hgb 13.9 GM/dL (11.7-16.9) 06/27/19 06:10 Hct 39.8 % (35.4-49) 06/27/19 06:10 MCV 80.3 fl (80-96) 06/27/19 06:10 MCH 28.0 pg (25.7-33.7) 06/27/19 06:10 MCHC 34.9 g/dl (32.0-35.9) 06/27/19 06:10 RDW 13.5 % (11.9-15.9) 06/27/19 06:10 Plt Count 205 K/MM3 (134-434) 06/27/19 06:10 MPV 9.3 fl (7.5-11.1) 06/27/19 06:10 Absolute Neuts (auto) 13.0 K/mm3 (1.5-8.0) H 06/26/19 16:58 Neutrophils % 81.8 % (42.8-82.8) 06/26/19 16:58 Lymphocytes % 9.5 % (8-40) 06/26/19 16:58 Monocytes % 7.2 % (3.8-10.2) 06/26/19 16:58 Eosinophils % 0.9 % (0-4.5) 06/26/19 16:58 Basophils % 0.6 % (0-2.0) 06/26/19 16:58 Nucleated RBC % 0 % (0-0) 06/26/19 16:58 Sodium 138 mmol/L (136-145) 06/27/19 06:10 Potassium 3.6 mmol/L (3.5-5.1) 06/27/19 06:10 Chloride 102 mmol/L (98-107) 06/27/19 06:10 Carbon Dioxide 29 mmol/L (21-32) 06/27/19 06:10 Anion Gap 7 MMOL/L (8-16) L 06/27/19 06:10 BUN 8.3 mg/dL (7-18) 06/27/19 06:10 Creatinine 0.8 mg/dL (0.55-1.3) 06/27/19 06:10 Est GFR (CKD-EPI)AfAm 136.99 06/27/19 06:10 Est GFR (CKD-EPI)NonAf 118.20 06/27/19 06:10 POC Glucometer 110 UNITS (80-120) 06/27/19 21:01 Random Glucose 176 mg/dL (74-106) H 06/27/19 06:10 Hemoglobin A1c % 10.9 % (4.2-6.3) H 06/26/19 18:10 Lactic Acid < 0.1 mmol/L (0.4-2.0) L 06/27/19 09:28 Calcium 8.4 mg/dL (8.5-10.1) L 06/27/19 06:10 Phosphorus 2.8 mg/dL (2.5-4.9) 06/27/19 06:10 Magnesium 2.3 mg/dL (1.8-2.4) 06/27/19 06:10 Total Bilirubin 0.8 mg/dL (0.2-1) 06/27/19 06:10 AST 18 U/L (15-37) 06/27/19 06:10 ALT 42 U/L (13-61) 06/27/19 06:10 Alkaline Phosphatase 106 U/L (45-117) 06/27/19 06:10 Creatine Kinase 100 U/L (26-308) 06/26/19 16:58 Troponin I < 0.02 ng/ml (0.00-0.05) 06/26/19 16:58 Total Protein 6.9 g/dl (6.4-8.2) 06/27/19 06:10 Albumin 3.1 g/dl (3.4-5.0) L 06/27/19 06:10 Triglycerides 851 mg/dL (0-150) H 06/27/19 17:30 Cholesterol 305 mg/dL (50-200) H 06/27/19 06:10 Total LDL Cholesterol 91 mg/dL (5-100) 06/27/19 06:10 HDL Cholesterol 21 mg/dL (40-60) L 06/27/19 06:10 Total Amylase 16 U/L (25-115) L 06/27/19 06:10 Lipase 136 U/L (73-393) 06/26/19 16:58 Current Medications Generic Name Dose Route Start Last Admin Trade Name Freq PRN Reason Stop Dose Admin Acetaminophen 1,000 mg 06/27/19 03:10 06/27/19 08:00 Ofirmev Injection - IVPB 1,000 mg Q6H PRN Administration PAIN OR FEVER Chlorhexidine Gluconate 1 applic 06/27/19 22:00 Hibiclens For Decolonization - TP HS JENELLE Enoxaparin Sodium 40 mg 06/27/19 10:00 06/27/19 10:10 Lovenox - SQ 40 mg DAILY JENELLE Administration Gemfibrozil 600 mg 06/27/19 14:30 06/27/19 14:30 Lopid - PO 600 mg BID JENELLE Administration Dextrose/Lactated Ringer's 20 meq in 1,000 mls @ 200 mls/hr 06/27/19 03:00 14:30 D5-Lr+20 Meq Kcl - IV 200 mls/hr ASDIR JENELLE Administration Insulin Human Regular 100 100 mls @ 12.47 mls/hr 06/27/19 12:35 06/27/19 13: 06 units/ Sodium Chloride IVPB 0.1 units/kg/hr TITR JENELLE 12.47 mls/hr Administration Protocol 0.1 UNITS/KG/HR Lisinopril 5 mg 06/27/19 10:00 06/27/19 10:11 Prinivil PO 5 mg DAILY JENELLE Administration Morphine Sulfate 2 mg 06/27/19 03:10 06/27/19 03:25 Morphine Sulfate IVPUSH 2 mg Q6H PRN Administration PAIN LEVEL 6-10 Mupirocin 1 applic 06/27/19 10:00 06/27/19 10:11 Bactroban Ointment (For Decolonization) - NS 07/02/19 09:59 1 applic BID JENELLE Administration Pantoprazole Sodium 40 mg 06/27/19 10:00 06/27/19 10:11 Protonix Iv IVPUSH 40 mg DAILY JENELLE Administration Constitutional: Yes: Calm Eyes: Yes: Conjunctiva Clear HENT: Yes: Atraumatic Neck: Yes: Supple Cardiovascular: Yes: Regular Rate and Rhythm Respiratory: Yes: CTA Bilaterally ...Auscultate: Yes: Normoactive Bowel Sounds ...Palpate: Yes: Soft, Other (nontender) ...Rectal Exam: Yes: Deferred Neurological: Yes: Alert, Oriented Labs: CBC, BMP 06/27/19 06:10 06/27/19 06:10 Laboratory Tests 06/26/19 06/27/19 06/27/19 16:58 00:10 06:10 Triglycerides 1139 H 944 H Total Amylase 16 L Lipase 136 06/27/19 17:30 Triglycerides 851 H Total Amylase Lipase Laboratory Tests 06/27/19 06/27/19 00:10 06:10 Cholesterol 331 H 305 H Total LDL Cholesterol 91 HDL Cholesterol 21 L Problem List - Problems (1) Acute pancreatitis Code(s): K85.90 - ACUTE PANCREATITIS WITHOUT NECROSIS OR INFECTION, UNSP (2) Hypertriglyceridemia Code(s): E78.1 - PURE HYPERGLYCERIDEMIA (3) Morbid (severe) obesity due to excess calories Code(s): E66.01 - MORBID (SEVERE) OBESITY DUE TO EXCESS CALORIES (4) Fatty (change of) liver, not elsewhere classified Code(s): K76.0 - FATTY (CHANGE OF) LIVER, NOT ELSEWHERE CLASSIFIED (5) Hyperlipidemia associated with type 2 diabetes mellitus Code(s): E11.69 - TYPE 2 DIABETES MELLITUS WITH OTHER SPECIFIED COMPLICATION; E78.5 - HYPERLIPIDEMIA, UNSPECIFIED (6) Diabetes mellitus, new onset Code(s): E11.9 - TYPE 2 DIABETES MELLITUS WITHOUT COMPLICATIONS (7) Epigastric abdominal pain Code(s): R10.13 - EPIGASTRIC PAIN Assessment/Plan Assessment: - Pancreatitis due to hypertriglyceridemia. - Morbid obesity with hyperlipidemia and diabetes mellitus - NAFLD Plan: -- I have discussed the Metabolic Syndrome and risk of pancreatic insufficiency with Misael. I have emphasized the need to adopt a low fat,low carb diet and to continue to engage in aerobic exercise. I have advised abstinence from alcohol as well. -- Diet has already been advanced -- Should have an endocrine and dietary consultation Discussed the case with Dr Ugarte
[2019-06-27] MEDS ORDERED: DEXTROSE 50%-WATER - 25 GM/50 ML VIAL IVPUSH ONE (22:26)
[2019-06-27] MEDS ORDERED: DEXTROSE 50%-WATER 25 GM/50 ML DISP.SYRIN IVPUSH ONE (22:27)
[2019-06-27] MEDS ORDERED: DEXTROSE 50%-WATER 25 GM/50 ML DISP.SYRIN ONE ×2 (22:33→23:49)
[2019-06-27] MEDS: CHLORHEXIDINE GLUCONATE 4% CLEANSER FOR DECOLONIZATION TP SCH (22:50)
[2019-06-28] MEDS: D5-LR+20 MEQ KCL - 20 MEQ/1,000 ML INFUS.BAG IV SCH ×3 (06:08→17:00)
[2019-06-28 06:45] LABS: HEMATOCRIT 39.4 % (35.4-49); HEMOGLOBIN 13.6 GM/dL (11.7-16.9); MCH 27.8 pg (25.7-33.7); MCHC 34.4 g/dl (32.0-35.9); MEAN CELL VOLUME 80.8 fl (80-96); MEAN PLT VOLUME 9.4 fl (7.5-11.1); PLATELET COUNT 235 K/MM3 (134-434); RBC 4.87 M/mm3 (4.00-5.60); RDW 13.4 % (11.9-15.9); WHITE BLOOD COUNT 10.5 K/mm3 (4.0-10.0)
[2019-06-28] MEDS ORDERED: INSULIN SLIDING SCALE (NOVOLOG) 1 VIAL SQ SCH (07:00)
[2019-06-28 07:24] LABS: ALBUMIN 2.8 g/dl (3.4-5.0); BILIRUBIN,TOTAL 0.7 mg/dL (0.2-1); BLOOD UREA NITROGEN 6.9 mg/dL (7-18); CALCIUM 8.4 mg/dL (8.5-10.1); CREATININE 0.6 mg/dL (0.55-1.3); MAGNESIUM 1.9 mg/dL (1.8-2.4); POTASSIUM 4.1 mmol/L (3.5-5.1); TOT PROT 6.7 g/dl (6.4-8.2)
[2019-06-28] MEDS: INSULIN REGULAR 100 UNITS in SODIUM CHLORIDE 99 ML IVPB SCH (08:50)
[2019-06-28] MEDS: PANTOPRAZOLE SODIUM 40 MG VIAL IVPUSH SCH (09:28)
[2019-06-28] MEDS: ENOXAPARIN NA (PORCINE) 40 MG/0.4 ML DISP.SYRIN SQ SCH (09:28)
[2019-06-28] MEDS: MUPIROCIN 2% TOPICAL OINTMENT FOR DECOLONIZATION NS SCH ×2 (09:29→22:34)
[2019-06-28] MEDS: GEMFIBROZIL 600 MG TABLET (FP) PO SCH ×2 (09:29→22:23)
[2019-06-28] MEDS: LISINOPRIL 5 MG TABLET (FP) PO SCH (09:30)
--- NOTE | 2019-06-28 10:11 | PN ---
Progress Note (short form) - Note Progress Note: HPI: Pt pain improved and only required one dose of morphine at night. Pt tolerating feeds without nausea or vomiting. Pt without pain at time of exam. Denies fever/chills PE: Vital Signs Temperature 98.0 F 06/27/19 22:00 Pulse Rate 98 H 06/28/19 08:00 Respiratory Rate 18 06/28/19 09:00 Blood Pressure 145/82 06/28/19 08:00 O2 Sat by Pulse Oximetry (%) 100 06/28/19 09:00 GEN: NAD, awake, alert, and oriented HEENT: NC/AT, [place], no xantholasmas around eyes or depositions in iris, MMM Neck: No JVD LUNGS: CTA b/l including bases. no wheezes. On RA CARD: RRR no murmurs ABD: soft, nondistended, normoactive BS, mild tenderness midepigastric region ( improved), no rebound, no guarding, no ecchymotic regions noted. No hepatomegaly EXT: No edema, well perfused peripheral limbs SKIN: No jaundice CBC, BMP 06/28/19 05:43 06/28/19 05:25 Hepatic Panel Total Bilirubin 0.7 mg/dL (0.2-1) 06/28/19 05:25 AST 33 U/L (15-37) 06/28/19 05:25 ALT 53 U/L (13-61) 06/28/19 05:25 Alkaline Phosphatase 117 U/L (45-117) 06/28/19 05:25 Albumin 2.8 g/dl (3.4-5.0) L 06/28/19 05:25 Active Medications Acetaminophen (Ofirmev Injection -) 1,000 mg IVPB Q6H PRN PRN Reason: PAIN OR FEVER Last Admin: 06/27/19 08:00 Dose: 1,000 mg Chlorhexidine Gluconate (Hibiclens For Decolonization -) 1 applic TP HS REPLACED BY [facility] Last Admin: 06/27/19 22:50 Dose: 1 applic Enoxaparin Sodium (Lovenox -) 40 mg SQ DAILY REPLACED BY [facility] Last Admin: 06/28/19 09:28 Dose: 40 mg Gemfibrozil (Lopid -) 600 mg PO BID REPLACED BY [facility] Last Admin: 06/28/19 09:29 Dose: 600 mg Dextrose/Lactated Ringer's (D5-Lr+20 Meq Kcl -) 20 meq in 1,000 mls @ 200 mls/ hr IV ASDIR REPLACED BY [facility] Last Admin: 06/28/19 06:08 Dose: 200 mls/hr Insulin Human Regular 100 (units/ Sodium Chloride) 100 mls @ 12.47 mls/hr IVPB TITR REPLACED BY [facility]; Protocol Last Admin: 06/28/19 08:50 Dose: 0.1 units/kg/hr, 12.47 mls/hr Lisinopril (Prinivil) 5 mg PO DAILY REPLACED BY [facility] Last Admin: 06/28/19 09:30 Dose: 5 mg Morphine Sulfate (Morphine Sulfate) 2 mg IVPUSH Q6H PRN PRN Reason: PAIN LEVEL 6-10 Last Admin: 06/27/19 22:45 Dose: 2 mg Mupirocin (Bactroban Ointment (For Decolonization) -) 1 applic NS BID REPLACED BY [facility] Stop: 07/02/19 09:59 Last Admin: 06/28/19 09:29 Dose: 1 applic Pantoprazole Sodium (Protonix Iv) 40 mg IVPUSH DAILY REPLACED BY [facility] Last Admin: 06/28/19 09:28 Dose: 40 mg A/P Hypertrigliceridemia pancreatitis Uncontrolled DM --Insulin gtt to continue 0.1u/kg/hr --D5-LR@200cc/hr --Q12h Trig serum --If <500 can d/c insulin gtt and start SQ and can be transferred to floors --May benefit from fenofibrate once DM is controlled --No evidence of familial history; no need for genetic testing --Pt improved with labs WNL --Pain control: Tylenol available PRN Morphine ONLY if severe pain (try to minimize) --Zofran PRN for nausea --Lisinopril 5mg qdaily for BP control --OOB as tolerated --Incentive spirometry FEN: Fluids: D5LR+20KCl@200cc/hr Electrolyte abnormalities: none today Nutrition: Diabetic diet PPX: DVT - Lovenox SQ GI - Protonix qdaily Dispo: ICU monitoring due to titrating insulin gtt; if off can likely transfer to medical floors Case discussed with Dr. Giuseppe Holm, DO - IM PGY-3 <Zeeshan Holm - Last Filed: 06/28/19 10:11> - Note Progress Note: Seen and examined; agree with above as documented by resident and verified all alfaro parts of history and physical His abdominal pain is improved, TG still >500, no worsening n/v No diarrhea Remains on IVF and insulin drip VS, labs, imaging reviewed NAD, AAO, resting in bed Abdominal exam slightly improved with no rebound or guarding; diffuse tenderness Normal mood, appropriate behavior Normal neuro exam, no fnd, cn wnl Normal mood, appropriate behavior GI consult noted Telemetry noted fsg checks noted A/P: Patient remains critically ill in ICU on insulin drip for TG-induced acute pancreatitis Continue fluids, fsg Continue pain meds Advance diet per GI FU with GI and PCCM consults Critical care time 35 minutes including face to face counseling and complex planning. <Serafin Chin - Last Filed: 06/28/19 10:23>
--- NOTE | 2019-06-28 13:10 | PN ---
Teaching Attending Note Name of Resident: Raphael Lala ATTENDING PHYSICIAN STATEMENT I saw and evaluated the patient. I reviewed the resident's note and discussed the case with the resident. I agree with the resident's findings and plan as documented. SUBJECTIVE: Patient seen and examined in the ICU. Pain better. No nausea or vomiting. Tolerating clears. OBJECTIVE: Intake & Output 06/25/19 06/26/19 06/27/19 06/28/19 23:59 23:59 23:59 23:59 Intake Total 4423.5 2749 Output Total 0 Balance 4423.5 2749 Weight 275 lb 254 lb 260 lb Last Vital Signs Temp Pulse Resp BP Pulse Ox 98.3 F 94 H 18 135/92 100 06/28/19 10:00 06/28/19 12:00 06/28/19 12:00 06/28/19 12:00 06/28/19 09:00 Active Medications Acetaminophen (Ofirmev Injection -) 1,000 mg IVPB Q6H PRN PRN Reason: PAIN OR FEVER Last Admin: 06/27/19 08:00 Dose: 1,000 mg Chlorhexidine Gluconate (Hibiclens For Decolonization -) 1 applic TP HS [facility] Last Admin: 06/27/19 22:50 Dose: 1 applic Enoxaparin Sodium (Lovenox -) 40 mg SQ DAILY [facility] Last Admin: 06/28/19 09:28 Dose: 40 mg Gemfibrozil (Lopid -) 600 mg PO BID [facility] Last Admin: 06/28/19 09:29 Dose: 600 mg Dextrose/Lactated Ringer's (D5-Lr+20 Meq Kcl -) 20 meq in 1,000 mls @ 200 mls/ hr IV ASDIR [facility] Last Admin: 06/28/19 10:32 Dose: 200 mls/hr Insulin Human Regular 100 (units/ Sodium Chloride) 100 mls @ 12.47 mls/hr IVPB TITR JENELLE; Protocol Last Admin: 06/28/19 08:50 Dose: 0.1 units/kg/hr, 12.47 mls/hr Lisinopril (Prinivil) 5 mg PO DAILY [facility] Last Admin: 06/28/19 09:30 Dose: 5 mg Morphine Sulfate (Morphine Sulfate) 2 mg IVPUSH Q6H PRN PRN Reason: PAIN LEVEL 6-10 Last Admin: 06/27/19 22:45 Dose: 2 mg Mupirocin (Bactroban Ointment (For Decolonization) -) 1 applic NS BID JENELLE Stop: 07/02/19 09:59 Last Admin: 06/28/19 09:29 Dose: 1 applic Pantoprazole Sodium (Protonix Iv) 40 mg IVPUSH DAILY [facility] Last Admin: 06/28/19 09:28 Dose: 40 mg Gen: NAD in chair Heart: RRR Lung: decreased breath sounds at the bases Abd: soft, nontender Ext: no edema Laboratory Results - last 24 hr 06/27/19 06/27/19 06/27/19 13:07 14:27 15:19 WBC RBC Hgb Hct MCV MCH MCHC RDW Plt Count MPV Sodium Potassium Chloride Carbon Dioxide Anion Gap BUN Creatinine Est GFR (CKD-EPI)AfAm Est GFR (CKD-EPI)NonAf POC Glucometer 268 169 145 Random Glucose Calcium Magnesium Total Bilirubin AST ALT Alkaline Phosphatase C-Reactive Protein Total Protein Albumin Triglycerides 06/27/19 06/27/19 06/27/19 16:28 17:20 17:30 WBC RBC Hgb Hct MCV MCH MCHC RDW Plt Count MPV Sodium Potassium Chloride Carbon Dioxide Anion Gap BUN Creatinine Est GFR (CKD-EPI)AfAm Est GFR (CKD-EPI)NonAf POC Glucometer 111 123 Random Glucose Calcium Magnesium Total Bilirubin AST ALT Alkaline Phosphatase C-Reactive Protein Total Protein Albumin Triglycerides 851 H 06/27/19 06/27/19 06/27/19 18:04 19:01 20:10 WBC RBC Hgb Hct MCV MCH MCHC RDW Plt Count MPV Sodium Potassium Chloride Carbon Dioxide Anion Gap BUN Creatinine Est GFR (CKD-EPI)AfAm Est GFR (CKD-EPI)NonAf POC Glucometer 149 178 127 Random Glucose Calcium Magnesium Total Bilirubin AST ALT Alkaline Phosphatase C-Reactive Protein Total Protein Albumin Triglycerides 06/27/19 06/27/19 06/28/19 21:01 22:22 00:06 WBC RBC Hgb Hct MCV MCH MCHC RDW Plt Count MPV Sodium Potassium Chloride Carbon Dioxide Anion Gap BUN Creatinine Est GFR (CKD-EPI)AfAm Est GFR (CKD-EPI)NonAf POC Glucometer 110 94 127 Random Glucose Calcium Magnesium Total Bilirubin AST ALT Alkaline Phosphatase C-Reactive Protein Total Protein Albumin Triglycerides 06/28/19 06/28/19 06/28/19 01:06 04:07 05:25 WBC RBC Hgb Hct MCV MCH MCHC RDW Plt Count MPV Sodium 137 Potassium 4.1 Chloride 103 Carbon Dioxide 24 Anion Gap 10 BUN 6.9 L Creatinine 0.6 Est GFR (CKD-EPI)AfAm 154.19 Est GFR (CKD-EPI)NonAf 133.04 POC Glucometer 135 178 Random Glucose 187 H Calcium 8.4 L Magnesium 1.9 Total Bilirubin 0.7 AST 33 ALT 53 Alkaline Phosphatase 117 C-Reactive Protein 19.8 H Total Protein 6.7 Albumin 2.8 L Triglycerides 644 H 06/28/19 06/28/19 06/28/19 05:33 05:43 07:19 WBC 10.5 H RBC 4.87 Hgb 13.6 Hct 39.4 MCV 80.8 MCH 27.8 MCHC 34.4 RDW 13.4 Plt Count 235 MPV 9.4 Sodium Potassium Chloride Carbon Dioxide Anion Gap BUN Creatinine Est GFR (CKD-EPI)AfAm Est GFR (CKD-EPI)NonAf POC Glucometer 188 232 Random Glucose Calcium Magnesium Total Bilirubin AST ALT Alkaline Phosphatase C-Reactive Protein Total Protein Albumin Triglycerides 06/28/19 06/28/19 06/28/19 08:59 10:25 12:11 WBC RBC Hgb Hct MCV MCH MCHC RDW Plt Count MPV Sodium Potassium Chloride Carbon Dioxide Anion Gap BUN Creatinine Est GFR (CKD-EPI)AfAm Est GFR (CKD-EPI)NonAf POC Glucometer 241 211 156 Random Glucose Calcium Magnesium Total Bilirubin AST ALT Alkaline Phosphatase C-Reactive Protein Total Protein Albumin Triglycerides ASSESSMENT AND PLAN: Acute Pancreatitis Hypertriglyceridemia DM HTN - Continue insulin gtt - monitor BGM, triglycerides - Lopid - pain control - PO as tolerated - IVF resuscitation - monitor lytes - DVT prophylaxis - ICU monitoring while on insulin drip Dr Nassar Critical care time spent in reviewing chart, evaluating patient and formulating plan - 36 minutes.
--- NOTE | 2019-06-28 13:14 | PN ---
Physical Exam: SUBJECTIVE: Patient seen and examined at bedside in the ICU. Reports that epigastric pain has improved. Denies nausea/vomiting. Tolerating PO. OBJECTIVE: Vital Signs Period Temp Pulse Resp BP Sys/Campos Pulse Ox Last 24 Hr 98.0 F-98.4 F 83-109 18-25 106-145/54-98 100-100 GENERAL: The patient is awake, alert, and fully oriented, in no acute distress. HEAD: Normal with no signs of trauma. EYES: PERRL, extraocular movements intact, sclera anicteric, conjunctiva clear. No ptosis. ENT: Ears normal, nares patent, oropharynx clear without exudates, moist mucous membranes. NECK: Trachea midline, full range of motion, supple. LUNGS: Breath sounds equal, clear to auscultation bilaterally, no wheezes, no crackles, no accessory muscle use. HEART: Regular rate and rhythm, S1, S2 without murmur, rub or gallop. ABDOMEN: Soft, mild TTP epigastric, nondistended, normoactive bowel sounds, no guarding, no rebound, no hepatosplenomegaly, no masses. EXTREMITIES: 2+ pulses, warm, well-perfused, no edema. NEUROLOGICAL: Cranial nerves II through XII grossly intact. Normal speech, gait not observed. PSYCH: Normal mood, normal affect. SKIN: Warm, dry, normal turgor, no rashes or lesions noted Laboratory Results - last 24 hr 06/27/19 06/27/19 06/27/19 14:27 15:19 16:28 WBC RBC Hgb Hct MCV MCH MCHC RDW Plt Count MPV Sodium Potassium Chloride Carbon Dioxide Anion Gap BUN Creatinine Est GFR (CKD-EPI)AfAm Est GFR (CKD-EPI)NonAf POC Glucometer 169 145 111 Random Glucose Calcium Magnesium Total Bilirubin AST ALT Alkaline Phosphatase C-Reactive Protein Total Protein Albumin Triglycerides 06/27/19 06/27/19 06/27/19 17:20 17:30 18:04 WBC RBC Hgb Hct MCV MCH MCHC RDW Plt Count MPV Sodium Potassium Chloride Carbon Dioxide Anion Gap BUN Creatinine Est GFR (CKD-EPI)AfAm Est GFR (CKD-EPI)NonAf POC Glucometer 123 149 Random Glucose Calcium Magnesium Total Bilirubin AST ALT Alkaline Phosphatase C-Reactive Protein Total Protein Albumin Triglycerides 851 H 06/27/19 06/27/19 06/27/19 19:01 20:10 21:01 WBC RBC Hgb Hct MCV MCH MCHC RDW Plt Count MPV Sodium Potassium Chloride Carbon Dioxide Anion Gap BUN Creatinine Est GFR (CKD-EPI)AfAm Est GFR (CKD-EPI)NonAf POC Glucometer 178 127 110 Random Glucose Calcium Magnesium Total Bilirubin AST ALT Alkaline Phosphatase C-Reactive Protein Total Protein Albumin Triglycerides 06/27/19 06/28/19 06/28/19 22:22 00:06 01:06 WBC RBC Hgb Hct MCV MCH MCHC RDW Plt Count MPV Sodium Potassium Chloride Carbon Dioxide Anion Gap BUN Creatinine Est GFR (CKD-EPI)AfAm Est GFR (CKD-EPI)NonAf POC Glucometer 94 127 135 Random Glucose Calcium Magnesium Total Bilirubin AST ALT Alkaline Phosphatase C-Reactive Protein Total Protein Albumin Triglycerides 06/28/19 06/28/19 06/28/19 04:07 05:25 05:33 WBC RBC Hgb Hct MCV MCH MCHC RDW Plt Count MPV Sodium 137 Potassium 4.1 Chloride 103 Carbon Dioxide 24 Anion Gap 10 BUN 6.9 L Creatinine 0.6 Est GFR (CKD-EPI)AfAm 154.19 Est GFR (CKD-EPI)NonAf 133.04 POC Glucometer 178 188 Random Glucose 187 H Calcium 8.4 L Magnesium 1.9 Total Bilirubin 0.7 AST 33 ALT 53 Alkaline Phosphatase 117 C-Reactive Protein 19.8 H Total Protein 6.7 Albumin 2.8 L Triglycerides 644 H 06/28/19 06/28/19 06/28/19 05:43 07:19 08:59 WBC 10.5 H RBC 4.87 Hgb 13.6 Hct 39.4 MCV 80.8 MCH 27.8 MCHC 34.4 RDW 13.4 Plt Count 235 MPV 9.4 Sodium Potassium Chloride Carbon Dioxide Anion Gap BUN Creatinine Est GFR (CKD-EPI)AfAm Est GFR (CKD-EPI)NonAf POC Glucometer 232 241 Random Glucose Calcium Magnesium Total Bilirubin AST ALT Alkaline Phosphatase C-Reactive Protein Total Protein Albumin Triglycerides 06/28/19 06/28/19 10:25 12:11 WBC RBC Hgb Hct MCV MCH MCHC RDW Plt Count MPV Sodium Potassium Chloride Carbon Dioxide Anion Gap BUN Creatinine Est GFR (CKD-EPI)AfAm Est GFR (CKD-EPI)NonAf POC Glucometer 211 156 Random Glucose Calcium Magnesium Total Bilirubin AST ALT Alkaline Phosphatase C-Reactive Protein Total Protein Albumin Triglycerides Active Medications Generic Name Dose Route Start Last Admin Trade Name Freq PRN Reason Stop Dose Admin Acetaminophen 1,000 mg 06/27/19 03:10 06/27/19 08:00 Ofirmev Injection - IVPB 1,000 mg Q6H PRN Administration PAIN OR FEVER Chlorhexidine Gluconate 1 applic 06/27/19 22:00 06/27/19 22:50 Hibiclens For Decolonization - TP 1 applic HS JENELLE Administration Enoxaparin Sodium 40 mg 06/27/19 10:00 06/28/19 09:28 Lovenox - SQ 40 mg DAILY JENELLE Administration Gemfibrozil 600 mg 06/27/19 14:30 06/28/19 09:29 Lopid - PO 600 mg BID JENELLE Administration Dextrose/Lactated Ringer's 20 meq in 1,000 mls @ 200 mls/hr 06/27/19 03:00 10:32 D5-Lr+20 Meq Kcl - IV 200 mls/hr ASDIR JENELLE Administration Insulin Human Regular 100 100 mls @ 12.47 mls/hr 06/27/19 12:35 06/28/19 08: 50 units/ Sodium Chloride IVPB 0.1 units/kg/hr TITR JNEELLE 12.47 mls/hr Administration Protocol 0.1 UNITS/KG/HR Lisinopril 5 mg 06/27/19 10:00 06/28/19 09:30 Prinivil PO 5 mg DAILY JENELLE Administration Morphine Sulfate 2 mg 06/27/19 03:10 06/27/19 22:45 Morphine Sulfate IVPUSH 2 mg Q6H PRN Administration PAIN LEVEL 6-10 Mupirocin 1 applic 06/27/19 10:00 06/28/19 09:29 Bactroban Ointment (For Decolonization) - NS 07/02/19 09:59 1 applic BID JENELLE Administration Pantoprazole Sodium 40 mg 06/27/19 10:00 06/28/19 09:28 Protonix Iv IVPUSH 40 mg DAILY JENELLE Administration ASSESSMENT/PLAN: Pt is a 34 y/o M with no known past medical history who presented to [facility] due to abdominal pain. Pt found to have hypertriglyceridemia induced Pancreatitis. #ENDOCRINE- Pancreatitis 2/2 Hypertriglyceridemia -Triglyceride level 1162 initially > today 644 - pt started on IV LR and improved abdominal pain. -CTAP Acute Pancreatitis -c/w Insulin gtt -D5-LR w/ 20 mEqKCL 200 cc/hr -Goal to bring Triglyceride level < 500 -Triglyceride levels Q12H -Gemfibrozil 600 BID for hypertriglyceridemia -Ofirmev and Morphine PRN for pain -BGM monitoring q1h #FENGI D5-LR w/ 20 mEq KCL Monitor Electrolytes regular diet advance as tolerated Protonix #DVT ppx: Lovenox 40 SQ Daily Dispo: Continue ICU care Visit type - Emergency Visit Emergency Visit: Yes ED Registration Date: 06/26/19 Care time: The patient presented to the Emergency Department on the above date and was hospitalized for further evaluation of their emergent condition. - New Patient This patient is new to me today: No - Critical Care Critical Care patient: Yes Total Critical Care Time (in minutes): 35 Critical Care Statement: The care of this patient involved high complexity decision making to prevent further life threatening deterioration of the patient 's condition and/or to evaluate & treat vital organ system(s) failure or risk of failure. ATTENDING PHYSICIAN STATEMENT I saw and evaluated the patient. I reviewed the resident's note and discussed the case with the resident. I agree with the resident's findings and plan as documented. SUBJECTIVE: OBJECTIVE: ASSESSMENT AND PLAN:
[2019-06-28] MEDS ORDERED: INSULIN REGULAR 100 UNITS in SODIUM CHLORIDE 99 ML IVPB SCH (16:45)
[2019-06-28] MEDS: MORPHINE SULFATE 2 MG/ML VIAL IVPUSH PRN (22:23)
[2019-06-28] MEDS: CHLORHEXIDINE GLUCONATE 4% CLEANSER FOR DECOLONIZATION TP SCH (22:25)
[2019-06-29 06:27] LABS: BASO % 0.5 % (0-2.0); EOS % 2.6 % (0-4.5); HEMATOCRIT 40.2 % (35.4-49); HEMOGLOBIN 13.9 GM/dL (11.7-16.9); LYMPH % 12.9 % (8-40); MCH 27.9 pg (25.7-33.7); MCHC 34.5 g/dl (32.0-35.9); MEAN CELL VOLUME 80.8 fl (80-96); MEAN PLT VOLUME 9.2 fl (7.5-11.1); MONO % 8.7 % (3.8-10.2); NEUT % 75.3 % (42.8-82.8); PLATELET COUNT 252 K/MM3 (134-434); RBC 4.97 M/mm3 (4.00-5.60); RDW 13.6 % (11.9-15.9); WHITE BLOOD COUNT 8.7 K/mm3 (4.0-10.0)
[2019-06-29 06:59] LABS: ALBUMIN 2.8 g/dl (3.4-5.0); BILIRUBIN,TOTAL 0.6 mg/dL (0.2-1); BLOOD UREA NITROGEN 6.9 mg/dL (7-18); CALCIUM 8.5 mg/dL (8.5-10.1); CREATININE 0.7 mg/dL (0.55-1.3); POTASSIUM 4.2 mmol/L (3.5-5.1); TOT PROT 6.8 g/dl (6.4-8.2)
[2019-06-29] MEDS: D5-LR+20 MEQ KCL - 20 MEQ/1,000 ML INFUS.BAG IV SCH (07:50)
[2019-06-29] MEDS: MUPIROCIN 2% TOPICAL OINTMENT FOR DECOLONIZATION NS SCH ×2 (10:27→21:55)
[2019-06-29] MEDS: GEMFIBROZIL 600 MG TABLET (FP) PO SCH ×2 (10:27→21:44)
[2019-06-29] MEDS: PANTOPRAZOLE SODIUM 40 MG VIAL IVPUSH SCH (10:28)
[2019-06-29] MEDS: LISINOPRIL 5 MG TABLET (FP) PO SCH (10:28)
[2019-06-29] MEDS: ENOXAPARIN NA (PORCINE) 40 MG/0.4 ML DISP.SYRIN SQ SCH (10:28)
[2019-06-29 10:36] LABS: MAGNESIUM 1.8 mg/dL (1.8-2.4)
[2019-06-29] MEDS ORDERED: INSULIN (NOVOLOG) ASPART 100 UNITS/ML 10ML VIAL SQ ONE (12:34)
--- NOTE | 2019-06-29 12:42 | PN ---
Progress Note (short form) - Note Progress Note: Seen and examined in the ICU AG remains closed Triglycerides <500 this AM Denies: f/c/rocha/n/v Current Medications Acetaminophen (Ofirmev Injection -) 1,000 mg IVPB Q6H PRN PRN Reason: PAIN OR FEVER Last Admin: 06/27/19 08:00 Dose: 1,000 mg Chlorhexidine Gluconate (Hibiclens For Decolonization -) 1 applic TP HS [facility] Last Admin: 06/28/19 22:25 Dose: 1 applic Enoxaparin Sodium (Lovenox -) 40 mg SQ DAILY [facility] Last Admin: 06/29/19 10:28 Dose: 40 mg Gemfibrozil (Lopid -) 600 mg PO BID [facility] Last Admin: 06/29/19 10:27 Dose: 600 mg Dextrose/Lactated Ringer's (D5-Lr+20 Meq Kcl -) 20 meq in 1,000 mls @ 200 mls/ hr IV ASDIR [facility] Last Admin: 06/29/19 07:50 Dose: 200 mls/hr Insulin Aspart (Novolog) 0 units SQ BID@0700,1630 [facility]; Protocol Insulin Detemir (Levemir Vial) 10 units SQ [facility] Lisinopril (Prinivil) 5 mg PO DAILY [facility] Last Admin: 06/29/19 10:28 Dose: 5 mg Morphine Sulfate (Morphine Sulfate) 2 mg IVPUSH Q6H PRN PRN Reason: PAIN LEVEL 6-10 Last Admin: 06/28/19 22:23 Dose: 2 mg Mupirocin (Bactroban Ointment (For Decolonization) -) 1 applic NS BID [facility] Stop: 07/02/19 09:59 Last Admin: 06/29/19 10:27 Dose: 1 applic Pantoprazole Sodium (Protonix Iv) 40 mg IVPUSH DAILY [facility] Last Admin: 06/29/19 10:28 Dose: 40 mg Vital Signs Period Temp Pulse Resp BP Sys/Campos Pulse Ox Last 24 Hr 98.1 F-98.8 F 89-104 11-29 110-159/68-91 99-100 Intake & Output 06/26/19 06/27/19 06/28/19 06/29/19 23:59 23:59 23:59 23:59 Intake Total 4423.5 5649 Output Total 0 Balance 4423.5 5649 Weight 124.738 kg 115.212 kg 117.934 kg 116.573 kg Exam: aWAKE, ALERT AND COOPERATIVE, no distress HEENT: PERRL CV: RRR Pulm: CTA Abd: Obese, SNTND Neuro: intact CBC, BMP 06/29/19 05:20 06/29/19 05:20 Laboratory Tests 06/27/19 06/27/19 06/27/19 00:10 06:10 17:30 Triglycerides 1139 H 944 H 851 H 06/28/19 06/28/19 06/29/19 05:25 19:45 05:20 Triglycerides 644 H 741 H 499 H ASSESSMENT AND PLAN: Acute Pancreatitis Hypertriglyceridemia DM HTN - stop insulin gtt, transition to SQ insulin - monitor BGM AC qHS, triglycerides - will need Endocrine education since SQ insulin is new - PO as tolerated - cont Lopid - IVF - monitor lytes - DVT prophylaxis - Ok for floor transfer Boerem Acnp pULM/ccm cct: 40M
--- NOTE | 2019-06-29 13:34 | PN ---
Physical Exam: SUBJECTIVE: Patient seen and examined. He has no complaints. He denies abdominal pain, nausea, vomiting. He is tolerating solid food. OBJECTIVE: Vital Signs Period Temp Pulse Resp BP Sys/Campos Pulse Ox Last 24 Hr 98.1 F-98.5 F 89-104 11-29 110-159/68-91 99-100 GENERAL: The patient is awake, alert, and fully oriented, in no acute distress. LUNGS: Breath sounds equal, clear to auscultation bilaterally, no wheezes, no crackles, no accessory muscle use. HEART: Regular rate and rhythm, S1, S2 without murmur, rub or gallop. ABDOMEN: Obese, soft, nontender, nondistended, normoactive bowel sounds, no guarding, no rebound, no hepatosplenomegaly, no masses. EXTREMITIES: 2+ pulses, warm, well-perfused, no edema. Laboratory Results - last 24 hr 06/28/19 06/28/19 06/28/19 13:33 15:00 16:25 WBC RBC Hgb Hct MCV MCH MCHC RDW Plt Count MPV Absolute Neuts (auto) Neutrophils % Lymphocytes % Monocytes % Eosinophils % Basophils % Nucleated RBC % Sodium Potassium Chloride Carbon Dioxide Anion Gap BUN Creatinine Est GFR (CKD-EPI)AfAm Est GFR (CKD-EPI)NonAf POC Glucometer 169 207 170 Random Glucose Calcium Magnesium Total Bilirubin AST ALT Alkaline Phosphatase Total Protein Albumin Triglycerides 06/28/19 06/28/19 06/28/19 18:08 19:45 20:37 WBC RBC Hgb Hct MCV MCH MCHC RDW Plt Count MPV Absolute Neuts (auto) Neutrophils % Lymphocytes % Monocytes % Eosinophils % Basophils % Nucleated RBC % Sodium Potassium Chloride Carbon Dioxide Anion Gap BUN Creatinine Est GFR (CKD-EPI)AfAm Est GFR (CKD-EPI)NonAf POC Glucometer 182 246 Random Glucose Calcium Magnesium Total Bilirubin AST ALT Alkaline Phosphatase Total Protein Albumin Triglycerides 741 H 06/28/19 06/28/19 06/29/19 22:07 23:11 01:01 WBC RBC Hgb Hct MCV MCH MCHC RDW Plt Count MPV Absolute Neuts (auto) Neutrophils % Lymphocytes % Monocytes % Eosinophils % Basophils % Nucleated RBC % Sodium Potassium Chloride Carbon Dioxide Anion Gap BUN Creatinine Est GFR (CKD-EPI)AfAm Est GFR (CKD-EPI)NonAf POC Glucometer 102 83 110 Random Glucose Calcium Magnesium Total Bilirubin AST ALT Alkaline Phosphatase Total Protein Albumin Triglycerides 06/29/19 06/29/19 06/29/19 02:08 03:06 04:03 WBC RBC Hgb Hct MCV MCH MCHC RDW Plt Count MPV Absolute Neuts (auto) Neutrophils % Lymphocytes % Monocytes % Eosinophils % Basophils % Nucleated RBC % Sodium Potassium Chloride Carbon Dioxide Anion Gap BUN Creatinine Est GFR (CKD-EPI)AfAm Est GFR (CKD-EPI)NonAf POC Glucometer 118 122 157 Random Glucose Calcium Magnesium Total Bilirubin AST ALT Alkaline Phosphatase Total Protein Albumin Triglycerides 06/29/19 06/29/19 06/29/19 04:59 05:20 05:20 WBC 8.7 RBC 4.97 Hgb 13.9 Hct 40.2 MCV 80.8 MCH 27.9 MCHC 34.5 RDW 13.6 Plt Count 252 MPV 9.2 Absolute Neuts (auto) 6.5 Neutrophils % 75.3 Lymphocytes % 12.9 D Monocytes % 8.7 Eosinophils % 2.6 D Basophils % 0.5 Nucleated RBC % 0 Sodium 137 Potassium 4.2 Chloride 101 Carbon Dioxide 27 Anion Gap 9 BUN 6.9 L Creatinine 0.7 Est GFR (CKD-EPI)AfAm 144.72 Est GFR (CKD-EPI)NonAf 124.87 POC Glucometer 172 Random Glucose 173 H Calcium 8.5 Magnesium 1.8 Total Bilirubin 0.6 AST 27 ALT 52 Alkaline Phosphatase 122 H Total Protein 6.8 Albumin 2.8 L Triglycerides 499 H 06/29/19 06/29/19 06/29/19 07:01 08:00 08:59 WBC RBC Hgb Hct MCV MCH MCHC RDW Plt Count MPV Absolute Neuts (auto) Neutrophils % Lymphocytes % Monocytes % Eosinophils % Basophils % Nucleated RBC % Sodium Potassium Chloride Carbon Dioxide Anion Gap BUN Creatinine Est GFR (CKD-EPI)AfAm Est GFR (CKD-EPI)NonAf POC Glucometer 187 164 156 Random Glucose Calcium Magnesium Total Bilirubin AST ALT Alkaline Phosphatase Total Protein Albumin Triglycerides 06/29/19 06/29/19 06/29/19 10:02 11:03 12:01 WBC RBC Hgb Hct MCV MCH MCHC RDW Plt Count MPV Absolute Neuts (auto) Neutrophils % Lymphocytes % Monocytes % Eosinophils % Basophils % Nucleated RBC % Sodium Potassium Chloride Carbon Dioxide Anion Gap BUN Creatinine Est GFR (CKD-EPI)AfAm Est GFR (CKD-EPI)NonAf POC Glucometer 202 181 137 Random Glucose Calcium Magnesium Total Bilirubin AST ALT Alkaline Phosphatase Total Protein Albumin Triglycerides Active Medications Generic Name Dose Route Start Last Admin Trade Name Freq PRN Reason Stop Dose Admin Acetaminophen 1,000 mg 06/27/19 03:10 06/27/19 08:00 Ofirmev Injection - IVPB 1,000 mg Q6H PRN Administration PAIN OR FEVER Chlorhexidine Gluconate 1 applic 06/27/19 22:00 06/28/19 22:25 Hibiclens For Decolonization - TP 1 applic HS JENELLE Administration Enoxaparin Sodium 40 mg 06/27/19 10:00 06/29/19 10:28 Lovenox - SQ 40 mg DAILY JENELLE Administration Gemfibrozil 600 mg 06/27/19 14:30 06/29/19 10:27 Lopid - PO 600 mg BID JENELLE Administration Dextrose/Lactated Ringer's 20 meq in 1,000 mls @ 200 mls/hr 06/27/19 03:00 07:50 D5-Lr+20 Meq Kcl - IV 200 mls/hr ASDIR JENELLE Administration Insulin Aspart 1 vial 06/29/19 16:30 Novolog Vial Sliding Scale - SQ BID@0700,1630 [facility] Protocol Insulin Detemir 10 units 06/29/19 22:00 Levemir Vial SQ [facility] Lisinopril 5 mg 06/27/19 10:00 06/29/19 10:28 Prinivil PO 5 mg DAILY JENELLE Administration Morphine Sulfate 2 mg 06/27/19 03:10 06/28/19 22:23 Morphine Sulfate IVPUSH 2 mg Q6H PRN Administration PAIN LEVEL 6-10 Mupirocin 1 applic 06/27/19 10:00 06/29/19 10:27 Bactroban Ointment (For Decolonization) - NS 07/02/19 09:59 1 applic BID JENELLE Administration Pantoprazole Sodium 40 mg 06/27/19 10:00 06/29/19 10:28 Protonix Iv IVPUSH 40 mg DAILY JENELLE Administration ASSESSMENT/PLAN: This is a 34 year old man with no significant medical history who presented to the ED with epigastric abdominal pain. 1. Acute pancreatitis secondary to hypertriglyceridemia - Clinically, pancreatitis is improved - Triglycerides improved with insulin drip - Insulin drip to be discontinued - Continue Lopid 2. Uncontrolled type 2 DM - HbA1c 10.9 - Levemir being started tonight - Novolog sliding scale started - Weight loss, diet modification, diabetic education 3. HTN - Continue lisinopril 4. Morbid obesity with BMI 41.5 5. DVT prophylaxis - On Lovenox Visit type - Emergency Visit Emergency Visit: Yes ED Registration Date: 06/26/19 Care time: The patient presented to the Emergency Department on the above date and was hospitalized for further evaluation of their emergent condition. - New Patient This patient is new to me today: Yes Date on this admission: 06/29/19 - Critical Care Critical Care patient: No - Discharge Referral Referred to [facility] Med P.C.: No
[2019-06-29] MEDS ORDERED: INSULIN SLIDING SCALE (NOVOLOG) 1 VIAL SQ SCH (16:30)
[2019-06-29 20:54] LABS: BLOOD UREA NITROGEN 9.3 mg/dL (7-18); CREATININE 0.9 mg/dL (0.55-1.3); POTASSIUM 4.1 mmol/L (3.5-5.1)
[2019-06-29] MEDS: INSULIN (LEVEMIR) 100 UNITS/ML UNITS SQ SCH (21:44)
[2019-06-29] MEDS: CHLORHEXIDINE GLUCONATE 4% CLEANSER FOR DECOLONIZATION TP SCH (21:55)
[2019-06-29] MEDS: INSULIN SLIDING SCALE (NOVOLOG) 1 VIAL SQ SCH (22:02)
[2019-06-30] MEDS: D5-LR+20 MEQ KCL - 20 MEQ/1,000 ML INFUS.BAG IV SCH (05:23)
[2019-06-30] MEDS: INSULIN SLIDING SCALE (NOVOLOG) 1 VIAL SQ SCH ×4 (06:29→22:10)
[2019-06-30 06:38] LABS: HEMATOCRIT 41.5 % (35.4-49); HEMOGLOBIN 14.3 GM/dL (11.7-16.9); MCH 28.1 pg (25.7-33.7); MCHC 34.6 g/dl (32.0-35.9); MEAN CELL VOLUME 81.2 fl (80-96); PLATELET COUNT 270 K/MM3 (134-434); RBC 5.11 M/mm3 (4.00-5.60); RDW 13.2 % (11.9-15.9); WHITE BLOOD COUNT 7.5 K/mm3 (4.0-10.0)
[2019-06-30 06:50] LABS: BLOOD UREA NITROGEN 10.1 mg/dL (7-18); CALCIUM 8.8 mg/dL (8.5-10.1); CREATININE 0.9 mg/dL (0.55-1.3); MAGNESIUM 1.8 mg/dL (1.8-2.4); PHOSPHOROUS 4.5 mg/dL (2.5-4.9); POTASSIUM 4.8 mmol/L (3.5-5.1)
--- NOTE | 2019-06-30 09:23 | PN ---
Progress Note (short form) - Note Progress Note: Seen and examined in ICU transitioned from insulin drip to SQ Triglycerides <500 this AM Denies abd pain/n/v Current Medications Acetaminophen (Ofirmev Injection -) 1,000 mg IVPB Q6H PRN PRN Reason: PAIN OR FEVER Last Admin: 06/27/19 08:00 Dose: 1,000 mg Chlorhexidine Gluconate (Hibiclens For Decolonization -) 1 applic TP HS [facility] Last Admin: 06/29/19 21:55 Dose: 1 applic Enoxaparin Sodium (Lovenox -) 40 mg SQ DAILY [facility] Last Admin: 06/29/19 10:28 Dose: 40 mg Gemfibrozil (Lopid -) 600 mg PO BID [facility] Last Admin: 06/29/19 21:44 Dose: 600 mg Insulin Aspart (Novolog Vial Sliding Scale -) 1 vial SQ [facility]; Protocol Last Admin: 06/30/19 06:29 Dose: 8 units Insulin Detemir (Levemir Vial) 10 units SQ [facility] Last Admin: 06/29/19 21:44 Dose: 10 units Lisinopril (Prinivil) 5 mg PO DAILY [facility] Last Admin: 06/29/19 10:28 Dose: 5 mg Morphine Sulfate (Morphine Sulfate) 2 mg IVPUSH Q6H PRN PRN Reason: PAIN LEVEL 6-10 Last Admin: 06/28/19 22:23 Dose: 2 mg Mupirocin (Bactroban Ointment (For Decolonization) -) 1 applic NS BID [facility] Stop: 07/02/19 09:59 Last Admin: 06/29/19 21:55 Dose: 1 applic Pantoprazole Sodium (Protonix Iv) 40 mg IVPUSH DAILY [facility] Last Admin: 06/29/19 10:28 Dose: 40 mg Vital Signs Period Temp Pulse Resp BP Sys/Campos Pulse Ox Last 24 Hr 98 F-99.0 F 89-102 12-25 110-148/68-98 97-97 Intake & Output 06/27/19 06/28/19 06/29/19 06/30/19 23:59 23:59 23:59 23:59 Intake Total 4423.5 5649 3807 2330 Output Total 0 Balance 4423.5 5649 3807 2330 Weight 115.212 kg 117.934 kg 116.573 kg 116.573 kg Exam: aWAKE, ALERT AND COOPERATIVE, no distress HEENT: PERRL CV: RRR Pulm: CTA Abd: Obese, SNTND Neuro: intact CBC, BMP 06/30/19 05:20 06/30/19 05:20 Laboratory Tests 06/30/19 05:20 Triglycerides 447 H ASSESSMENT AND PLAN: Acute Pancreatitis Hypertriglyceridemia DM HTN - stop insulin gtt, transition to SQ insulin - monitor BGM AC qHS, triglycerides - d/c standing D5 given hyperglycemia and tolerating POs - will need Endocrine/nutrition education since SQ insulin is new - Tolerating POs - cont Lopid - monitor lytes - DVT prophylaxis - Ok for floor transfer Boerem Acnp pULM/ccm cct: 40M
[2019-06-30] MEDS: MUPIROCIN 2% TOPICAL OINTMENT FOR DECOLONIZATION NS SCH ×2 (10:45→22:08)
[2019-06-30] MEDS: LISINOPRIL 5 MG TABLET (FP) PO SCH (10:46)
[2019-06-30] MEDS: ENOXAPARIN NA (PORCINE) 40 MG/0.4 ML DISP.SYRIN SQ SCH (10:46)
[2019-06-30] MEDS: PANTOPRAZOLE SODIUM 40 MG VIAL IVPUSH SCH (10:46)
[2019-06-30] MEDS: GEMFIBROZIL 600 MG TABLET (FP) PO SCH ×2 (10:46→22:10)
--- NOTE | 2019-06-30 11:57 | PN ---
Physical Exam: SUBJECTIVE: Patient seen and examined. Patient has no complaints. OBJECTIVE: Vital Signs Period Temp Pulse Resp BP Sys/Campos Pulse Ox Last 24 Hr 98 F-99.0 F 89-102 12-25 125-148/73-98 97-97 GENERAL: The patient is awake, alert, and fully oriented, in no acute distress. LUNGS: Breath sounds equal, clear to auscultation bilaterally, no wheezes, no crackles, no accessory muscle use. HEART: Regular rate and rhythm, S1, S2 without murmur, rub or gallop. ABDOMEN: Obese, soft, nontender, nondistended, normoactive bowel sounds, no guarding, no rebound, no hepatosplenomegaly, no masses. EXTREMITIES: 2+ pulses, warm, well-perfused, no edema. Laboratory Results - last 24 hr 06/29/19 06/29/19 06/29/19 12:01 15:06 16:38 WBC RBC Hgb Hct MCV MCH MCHC RDW Plt Count MPV Sodium Potassium Chloride Carbon Dioxide Anion Gap BUN Creatinine Est GFR (CKD-EPI)AfAm Est GFR (CKD-EPI)NonAf POC Glucometer 137 218 225 Random Glucose Calcium Phosphorus Magnesium Triglycerides 06/29/19 06/29/19 06/30/19 20:12 21:43 05:20 WBC RBC Hgb Hct MCV MCH MCHC RDW Plt Count MPV Sodium 134 L 134 L Potassium 4.1 4.8 Chloride 98 99 Carbon Dioxide 28 28 Anion Gap 8 7 L BUN 9.3 10.1 Creatinine 0.9 0.9 Est GFR (CKD-EPI)AfAm 130.52 130.52 Est GFR (CKD-EPI)NonAf 112.62 112.62 POC Glucometer 251 Random Glucose 260 H 324 H Calcium 9.0 8.8 Phosphorus 4.5 Magnesium 1.8 Triglycerides 705 H 447 H 06/30/19 06/30/19 06/30/19 05:20 05:21 11:09 WBC 7.5 RBC 5.11 Hgb 14.3 Hct 41.5 MCV 81.2 MCH 28.1 MCHC 34.6 RDW 13.2 Plt Count 270 MPV 9.0 Sodium Potassium Chloride Carbon Dioxide Anion Gap BUN Creatinine Est GFR (CKD-EPI)AfAm Est GFR (CKD-EPI)NonAf POC Glucometer 307 198 Random Glucose Calcium Phosphorus Magnesium Triglycerides Active Medications Generic Name Dose Route Start Last Admin Trade Name Freq PRN Reason Stop Dose Admin Acetaminophen 1,000 mg 06/27/19 03:10 06/27/19 08:00 Ofirmev Injection - IVPB 1,000 mg Q6H PRN Administration PAIN OR FEVER Chlorhexidine Gluconate 1 applic 06/27/19 22:00 06/29/19 21:55 Hibiclens For Decolonization - TP 1 applic HS JENELLE Administration Enoxaparin Sodium 40 mg 06/27/19 10:00 06/30/19 10:46 Lovenox - SQ 40 mg DAILY JENELLE Administration Gemfibrozil 600 mg 06/27/19 14:30 06/30/19 10:46 Lopid - PO 600 mg BID JENELLE Administration Insulin Aspart 1 vial 06/29/19 22:00 06/30/19 11:11 Novolog Vial Sliding Scale - SQ 2 units ACHS JENELLE Administration Protocol Insulin Detemir 10 units 06/29/19 22:00 06/29/19 21:44 Levemir Vial SQ 10 units HS JENELLE Administration Lisinopril 5 mg 06/27/19 10:00 06/30/19 10:46 Prinivil PO 5 mg DAILY JENELLE Administration Morphine Sulfate 2 mg 06/27/19 03:10 06/28/19 22:23 Morphine Sulfate IVPUSH 2 mg Q6H PRN Administration PAIN LEVEL 6-10 Mupirocin 1 applic 06/27/19 10:00 06/30/19 10:45 Bactroban Ointment (For Decolonization) - NS 07/02/19 09:59 1 applic BID JENELLE Administration Pantoprazole Sodium 40 mg 06/27/19 10:00 06/30/19 10:46 Protonix Iv IVPUSH 40 mg DAILY JENELLE Administration ASSESSMENT/PLAN: This is a 34 year old man with no significant medical history who presented to the ED with epigastric abdominal pain. 1. Acute pancreatitis secondary to hypertriglyceridemia - Improved - Triglycerides 447 off insulin drip - Continue Lopid 2. Uncontrolled type 2 DM - HbA1c 10.9 - AM glucose 324 but patient was still receiving IV D5LR - Continue Levemir, Novolog sliding scale and monitor fingersticks x 24 hours - Weight loss, diet modification, diabetic education 3. HTN - Continue lisinopril 4. Morbid obesity with BMI 41.5 5. DVT prophylaxis - On Lovenox 6. Disposition - Expect discharge tomorrow Visit type - Emergency Visit Emergency Visit: Yes ED Registration Date: 06/26/19 Care time: The patient presented to the Emergency Department on the above date and was hospitalized for further evaluation of their emergent condition. - New Patient This patient is new to me today: No - Critical Care Critical Care patient: No - Discharge Referral Referred to [facility] Med P.C.: No
[2019-06-30 13:11] VITALS: BMI 41.4
[2019-06-30] MEDS: INSULIN (LEVEMIR) 100 UNITS/ML UNITS SQ SCH (22:09)
[2019-06-30] MEDS: CHLORHEXIDINE GLUCONATE 4% CLEANSER FOR DECOLONIZATION TP SCH (22:09)
[2019-07-01] MEDS: INSULIN SLIDING SCALE (NOVOLOG) 1 VIAL SQ SCH ×2 (06:18→11:04)
[2019-07-01 06:31] VITALS: PULSE 97; TEMP 97.4
[2019-07-01 07:13] LABS: BLOOD UREA NITROGEN 15.9 mg/dL (7-18); CALCIUM 8.8 mg/dL (8.5-10.1); CREATININE 0.9 mg/dL (0.55-1.3); MAGNESIUM 2.2 mg/dL (1.8-2.4); PHOSPHOROUS 4.6 mg/dL (2.5-4.9); POTASSIUM 4.5 mmol/L (3.5-5.1)
[2019-07-01 07:58] LABS: BASO % 0.8 % (0-2.0); EOS % 2.8 % (0-4.5); HEMOGLOBIN 15.1 GM/dL (11.7-16.9); MCH 27.9 pg (25.7-33.7); MCHC 34.2 g/dl (32.0-35.9); MEAN CELL VOLUME 81.7 fl (80-96); MEAN PLT VOLUME 9.3 fl (7.5-11.1); MONO % 8.5 % (3.8-10.2); NEUT % 72.9 % (42.8-82.8); PLATELET COUNT 297 K/MM3 (134-434); RBC 5.39 M/mm3 (4.00-5.60); RDW 13.8 % (11.9-15.9); WHITE BLOOD COUNT 8.9 K/mm3 (4.0-10.0)
[2019-07-01 09:11] VITALS: BP 126/79
[2019-07-01] MEDS: ENOXAPARIN NA (PORCINE) 40 MG/0.4 ML DISP.SYRIN SQ SCH (09:15)
[2019-07-01] MEDS: GEMFIBROZIL 600 MG TABLET (FP) PO SCH (09:15)
[2019-07-01] MEDS: LISINOPRIL 5 MG TABLET (FP) PO SCH (09:15)
[2019-07-01] MEDS: MUPIROCIN 2% TOPICAL OINTMENT FOR DECOLONIZATION NS SCH (09:15)
--- NOTE | 2019-07-01 09:25 | DS ---
Physical Exam: SUBJECTIVE: No complaints. Eager to go home OBJECTIVE: Vital Signs Period Temp Pulse Resp BP Sys/Campos Pulse Ox Last 24 Hr 97.4 F-98.5 F 75-107 14-26 103-141/65-93 97-97 PHYSICAL EXAM GEN: NAD, awake, alert, and oriented HEENT: NC/AT, [place], MMM Neck: No JVD LUNGS: CTA b/l including bases. no wheezes. On RA CARD: RRR no murmurs ABD: soft, nondistended, normoactive BS, no TTP, no rebound, no guarding EXT: No edema, well perfused peripheral limbs SKIN: No jaundice LABS Laboratory Results - last 24 hr 06/30/19 06/30/19 06/30/19 11:09 16:43 22:06 WBC RBC Hgb Hct MCV MCH MCHC RDW Plt Count MPV Absolute Neuts (auto) Neutrophils % Lymphocytes % Monocytes % Eosinophils % Basophils % Nucleated RBC % Sodium Potassium Chloride Carbon Dioxide Anion Gap BUN Creatinine Est GFR (CKD-EPI)AfAm Est GFR (CKD-EPI)NonAf POC Glucometer 198 170 250 Random Glucose Calcium Phosphorus Magnesium Triglycerides 07/01/19 07/01/19 07/01/19 05:18 05:30 06:14 WBC 8.9 RBC 5.39 Hgb 15.1 Hct 44.0 MCV 81.7 MCH 27.9 MCHC 34.2 RDW 13.8 Plt Count 297 MPV 9.3 Absolute Neuts (auto) 6.5 Neutrophils % 72.9 Lymphocytes % 15.0 Monocytes % 8.5 Eosinophils % 2.8 Basophils % 0.8 Nucleated RBC % 0 Sodium 135 L Potassium 4.5 Chloride 98 Carbon Dioxide 30 Anion Gap 8 BUN 15.9 Creatinine 0.9 Est GFR (CKD-EPI)AfAm 130.52 Est GFR (CKD-EPI)NonAf 112.62 POC Glucometer 227 Random Glucose 212 H Calcium 8.8 Phosphorus 4.6 Magnesium 2.2 Triglycerides 500 H Microbiology 06/26/19 18:00 Blood - Peripheral Venous Blood Culture - Preliminary NO GROWTH OBTAINED AFTER 96 HOURS, INCUBATION TO CONTINUE FOR 1 DAYS. 06/26/19 18:00 Blood - Peripheral Venous Blood Culture - Preliminary NO GROWTH OBTAINED AFTER 96 HOURS, INCUBATION TO CONTINUE FOR 1 DAYS. 06/26/19 19:57 Urine - Urine Clean Catch Urine Culture - Final NO GROWTH OBTAINED Active Medications Chlorhexidine Gluconate (Hibiclens For Decolonization -) 1 applic TP HS [facility] Last Admin: 06/30/19 22:09 Dose: 1 applic Enoxaparin Sodium (Lovenox -) 40 mg SQ DAILY [facility] Last Admin: 06/30/19 10:46 Dose: 40 mg Gemfibrozil (Lopid -) 600 mg PO BID [facility] Last Admin: 06/30/19 22:10 Dose: 600 mg Insulin Aspart (Novolog Vial Sliding Scale -) 1 vial SQ ACHS [facility]; Protocol Last Admin: 07/01/19 06:18 Dose: 4 units Insulin Detemir (Levemir Vial) 10 units SQ HS [facility] Last Admin: 06/30/19 22:09 Dose: 10 units Lisinopril (Prinivil) 5 mg PO DAILY [facility] Last Admin: 06/30/19 10:46 Dose: 5 mg Mupirocin (Bactroban Ointment (For Decolonization) -) 1 applic NS BID [facility] Stop: 07/02/19 09:59 Last Admin: 06/30/19 22:08 Dose: 1 applic Imaging: CT Abd/Pelvis: Findings are noted consistent with acute pancreatitis. No CT evidence of urolithiasis or obstructive uropathy. marked diffuse hepatic steatosis. Mild splenomegaly. RUQ U/S: IMPRESSION: Hepatomegaly and diffuse fatty infiltration of the liver. ECG: SINUS TACHYCARDIA POSSIBLE LATERAL INFARCT , AGE UNDETERMINED POSSIBLE INFERIOR INFARCT , AGE UNDETERMINED ABNORMAL ECG NO PREVIOUS ECGS AVAILABLE HOSPITAL COURSE: Date of Admission:06/26/19 Date of Discharge: 07/01/19 Pt was admitted 06/26/2019 due to severe abdominal pain found to have pancreatitis on CT imaging with normal lipase. Upon further investigation pt was found to have Triglycerides at 1200 (without familial history of hypertriglyceridemia) and was placed on an insulin gtt and IVF+dextrose to treat. Pt steadily improved and triglycerides were monitored every 12 hours for subsequent decrease. Pt was able to tolerate feeds during his hospital course and was placed on Gemfibrozil 600mg BID PO. Insulin gtt was discontinued and he was maintained on Levemir 10U HS and insulin sliding scale. In addition, pt was found to have A1c of 10.9% and was diagnosed with diabetes mellitus Currently pt is being discharged in stable condition with last known Triglycerides at 500 and controlled glucose levels. Pt has been educated on how to take insulin and will be discharged home with Levemir 10U HS. In addition glucometer was sent with appropriate equipment so he can monitor glucose levels 2-3x per day including fasting AM. Pt is also instructed to continue with Lopid 600mg BID PO. He is to establish care with Dr. Ruiz to monitor his DM and triglyceride levels on an outpatient basis. Minutes to complete discharge: 35 Discharge Summary Problems reviewed: Yes Reason For Visit: RECENT ONSET OF DIABETES MELLITUS,ACUTE PANCRESTIT Current Active Problems Acute pancreatitis (Acute) Diabetes mellitus, new onset (Acute) Epigastric abdominal pain (Acute) Fatty (change of) liver, not elsewhere classified (Acute) Hyperlipidemia associated with type 2 diabetes mellitus (Acute) Hypertriglyceridemia (Acute) Morbid (severe) obesity due to excess calories (Acute) Condition: Improved - Instructions Diet, Activity, Other Instructions: You were hospitalized for pancreatitis related to a high triglyceride level. This level was increased because of diabetes and high blood sugars. We treated you for both and your pain improved. It is important to continue with diabetes medications and a proper diet MEDICATIONS: Please avoid all bread, pastas, rice, and high carbohydrate foods You will be sent a glucometer to your pharmacy and will need to take your blood sugar levels once in the morning before breakfast and once before night. --Please keep a journal of these numbers so your doctors can see how we can change medications in the future You will need to take insulin, Levemir 10U NIGHTLY, due to your uncontrolled blood sugars. You will also be sent Lopid 600mg TWICE daily which will control your triglycerides as well. Follow-up: Please follow up with your primary care provider in 1 week to discuss your diabetes diagnosis and update them on your hospitalization. If you do not have one you can see Dr. Ruiz to establish a primary doctor Referrals: Kyle Ruiz MD [Staff Physician] - Anirudh Valdes DPM [Staff Physician] - Disposition: HOME - Home Medications Comprehensive Discharge Medication List: Ambulatory Orders Alcohol Antiseptic Pads [Alcohol Prep Pads] 1 each TP BID #200 med..pad Gemfibrozil [Lopid -] 600 mg PO BID #60 tablet 07/01/19 Insulin Detemir [Levemir Flextouch] 10 unit SQ HS #1 insuln.pen 07/01/19 Lancets 1 each MC BID #200 each 10/07/19 Miscellaneous Medical Supply [Glucometer Device] 1 each RUTHIE ASDIR #1 kit Miscellaneous Medical Supply [Glucometer Test Strips #100] 1 each RUTHIE ASDIR #1 box 07/01/19 Pen Needle, Diabetic [Pen Needle] 1 each HS #100 dis.needle 07/01/19 This patient is new to me today: No Emergency Visit: Yes ED Registration Date: 06/26/19 Care time: The patient presented to the Emergency Department on the above date and was hospitalized for further evaluation of their emergent condition. Critical Care patient: No - Discharge Referral Referred to [facility] Med P.C.: No
--- NOTE | 2019-07-01 10:11 | PN ---
Physical Exam: SUBJECTIVE: Patient seen and examined at bedside in ICU. Pt asymptomatic, no epigastric pain, good appetite, vitals stable OBJECTIVE: Vital Signs Period Temp Pulse Resp BP Sys/Campos Pulse Ox Last 24 Hr 97.4 F-98.5 F 75-107 14-26 103-141/65-93 97-97 GENERAL: The patient is awake, alert, and fully oriented, in no acute distress. HEAD: Normal with no signs of trauma. NECK: Trachea midline, full range of motion, supple. LUNGS: clear to auscultation bilaterally, no wheezes, no crackles, no accessory muscle use. HEART: Regular rate and rhythm, S1, S2 without murmur, rub or gallop. ABDOMEN: Soft, nontender, nondistended, normoactive bowel sounds, no guarding, no rebound. no coronado turners/cullens sign. EXTREMITIES: no edema. SKIN: Warm, dry, no rashes or lesions noted Laboratory Results - last 24 hr 06/30/19 06/30/19 06/30/19 11:09 16:43 22:06 WBC RBC Hgb Hct MCV MCH MCHC RDW Plt Count MPV Absolute Neuts (auto) Neutrophils % Lymphocytes % Monocytes % Eosinophils % Basophils % Nucleated RBC % Sodium Potassium Chloride Carbon Dioxide Anion Gap BUN Creatinine Est GFR (CKD-EPI)AfAm Est GFR (CKD-EPI)NonAf POC Glucometer 198 170 250 Random Glucose Calcium Phosphorus Magnesium Triglycerides 07/01/19 07/01/19 07/01/19 05:18 05:30 06:14 WBC 8.9 RBC 5.39 Hgb 15.1 Hct 44.0 MCV 81.7 MCH 27.9 MCHC 34.2 RDW 13.8 Plt Count 297 MPV 9.3 Absolute Neuts (auto) 6.5 Neutrophils % 72.9 Lymphocytes % 15.0 Monocytes % 8.5 Eosinophils % 2.8 Basophils % 0.8 Nucleated RBC % 0 Sodium 135 L Potassium 4.5 Chloride 98 Carbon Dioxide 30 Anion Gap 8 BUN 15.9 Creatinine 0.9 Est GFR (CKD-EPI)AfAm 130.52 Est GFR (CKD-EPI)NonAf 112.62 POC Glucometer 227 Random Glucose 212 H Calcium 8.8 Phosphorus 4.6 Magnesium 2.2 Triglycerides 500 H Active Medications Generic Name Dose Route Start Last Admin Trade Name Freq PRN Reason Stop Dose Admin Chlorhexidine Gluconate 1 applic 10/03/19 22:00 06/30/19 22:09 Hibiclens For Decolonization - TP 1 applic HS JENELLE Administration Enoxaparin Sodium 40 mg 06/27/19 10:00 06/30/19 10:46 Lovenox - SQ 40 mg DAILY JENELLE Administration Gemfibrozil 600 mg 06/27/19 14:30 06/30/19 22:10 Lopid - PO 600 mg BID JENELLE Administration Insulin Aspart 1 vial 06/29/19 22:00 07/01/19 06:18 Novolog Vial Sliding Scale - SQ 4 units ACHS JENELLE Administration Protocol Insulin Detemir 10 units 06/29/19 22:00 06/30/19 22:09 Levemir Vial SQ 10 units HS JENELLE Administration Lisinopril 5 mg 06/27/19 10:00 06/30/19 10:46 Prinivil PO 5 mg DAILY JENELLE Administration Mupirocin 1 applic 06/27/19 10:00 06/30/19 22:08 Bactroban Ointment (For Decolonization) - NS 07/02/19 09:59 1 applic BID JENELLE Administration ASSESSMENT/PLAN: Pt is a 34 y/o M with no known past medical history who presented to [facility] due to abdominal pain. Pt found to have hypertriglyceridemia induced Pancreatitis. #ENDOCRINE- Pancreatitis 2/2 Hypertriglyceridemia -Triglyceride level 1162 initially > today 500 on SQ insulin d/c standing D5 given hyperglycemia and tolerating POs - needs endo/nutritional education -D5-LR w/ 20 mEqKCL 200 cc/hr -Goal to bring Triglyceride level < 500 -Triglyceride levels Q12H -Gemfibrozil 600 BID for hypertriglyceridemia -Ofirmev and Morphine PRN for pain -BGM monitoring achs - TAKE 10 U of long acting insulin at home #FENGI D5-LR w/ 20 mEq KCL Monitor Electrolytes regular diet advance as tolerated Protonix #DVT ppx: Lovenox 40 SQ Daily Dispo: Can be discharged home and follow up with primary doctor. Thank you for this consultative opportunity. Visit type - Emergency Visit Emergency Visit: Yes ED Registration Date: 06/26/19 Care time: The patient presented to the Emergency Department on the above date and was hospitalized for further evaluation of their emergent condition. - New Patient This patient is new to me today: Yes Date on this admission: 07/01/19 - Critical Care Critical Care patient: Yes Total Critical Care Time (in minutes): 35 Critical Care Statement: The care of this patient involved high complexity decision making to prevent further life threatening deterioration of the patient 's condition and/or to evaluate & treat vital organ system(s) failure or risk of failure. - Discharge Referral Referred to [facility] Med P.C.: No
[2019-07-01] MEDS ORDERED: INSULIN (NOVOLOG) ASPART 100 UNITS/ML 10ML VIAL ONE (11:06)
--- NOTE | 2019-07-01 11:28 | PN ---
Teaching Attending Note Name of Resident: Ellis Paulino ATTENDING PHYSICIAN STATEMENT I saw and evaluated the patient. I reviewed the resident's note and discussed the case with the resident. I agree with the resident's findings and plan as documented. SUBJECTIVE: Feels overall better. Tolerating PO intake. No CP or SOB. No acute events overnight. Intake & Output 06/28/19 06/29/19 06/30/19 07/01/19 23:59 23:59 23:59 23:59 Intake Total 5649 3807 3330 1000 Balance 5649 3807 3330 1000 Weight 260 lb 257 lb 257 lb 255 lb 9.6 oz Last Vital Signs Temp Pulse Resp BP Pulse Ox 97.4 F L 97 H 18 126/79 97 07/01/19 06:00 07/01/19 09:10 07/01/19 09:10 07/01/19 09:10 07/01/19 09:00 Active Medications Chlorhexidine Gluconate (Hibiclens For Decolonization -) 1 applic TP HS [facility] Last Admin: 06/30/19 22:09 Dose: 1 applic Enoxaparin Sodium (Lovenox -) 40 mg SQ DAILY [facility] Last Admin: 06/30/19 10:46 Dose: 40 mg Gemfibrozil (Lopid -) 600 mg PO BID [facility] Last Admin: 06/30/19 22:10 Dose: 600 mg Insulin Aspart (Novolog Vial Sliding Scale -) 1 vial SQ [facility]; Protocol Last Admin: 07/01/19 06:18 Dose: 4 units Insulin Detemir (Levemir Vial) 10 units SQ [facility] Last Admin: 06/30/19 22:09 Dose: 10 units Lisinopril (Prinivil) 5 mg PO DAILY [facility] Last Admin: 06/30/19 10:46 Dose: 5 mg Mupirocin (Bactroban Ointment (For Decolonization) -) 1 applic NS BID [facility] Stop: 07/02/19 09:59 Last Admin: 06/30/19 22:08 Dose: 1 applic Exam: General: awake and alert, NAD HEENT: (-) Icterus CV: RRR Pulm: CTA Abd: Obese, SNTND Neuro: intact Laboratory Results - last 24 hr 06/30/19 06/30/19 07/01/19 16:43 22:06 05:18 WBC RBC Hgb Hct MCV MCH MCHC RDW Plt Count MPV Absolute Neuts (auto) Neutrophils % Lymphocytes % Monocytes % Eosinophils % Basophils % Nucleated RBC % Sodium 135 L Potassium 4.5 Chloride 98 Carbon Dioxide 30 Anion Gap 8 BUN 15.9 Creatinine 0.9 Est GFR (CKD-EPI)AfAm 130.52 Est GFR (CKD-EPI)NonAf 112.62 POC Glucometer 170 250 Random Glucose 212 H Calcium 8.8 Phosphorus 4.6 Magnesium 2.2 Triglycerides 500 H 07/01/19 07/01/19 07/01/19 05:30 06:14 10:58 WBC 8.9 RBC 5.39 Hgb 15.1 Hct 44.0 MCV 81.7 MCH 27.9 MCHC 34.2 RDW 13.8 Plt Count 297 MPV 9.3 Absolute Neuts (auto) 6.5 Neutrophils % 72.9 Lymphocytes % 15.0 Monocytes % 8.5 Eosinophils % 2.8 Basophils % 0.8 Nucleated RBC % 0 Sodium Potassium Chloride Carbon Dioxide Anion Gap BUN Creatinine Est GFR (CKD-EPI)AfAm Est GFR (CKD-EPI)NonAf POC Glucometer 227 263 Random Glucose Calcium Phosphorus Magnesium Triglycerides ASSESSMENT AND PLAN: Acute Pancreatitis Hypertriglyceridemia DM HTN Glycemic control PO as tolerated Needs to be set up with a Primary MD in the community Meryl CORDERO planning Dr Nassar
[2019-07-01 11:40] LABS: ANISOCYTOSIS 0; MACROCYTOSIS 0; PLATELET ESTIMATE NORMAL
--- NOTE | 2019-07-01 12:56 | PN ---
Teaching Attending Note Name of Resident: Zeeshan Holm ATTENDING PHYSICIAN STATEMENT I saw and evaluated the patient. I reviewed the resident's note and discussed the case with the resident. I agree with the resident's findings and plan as documented. SUBJECTIVE: No complaints. OBJECTIVE: Vital Signs Period Temp Pulse Resp BP Sys/Campos Pulse Ox Last 24 Hr 97.4 F-98.5 F 75-107 14-26 103-141/65-93 97-97 GENERAL: The patient is awake, alert, and fully oriented, in no acute distress. LUNGS: Breath sounds equal, clear to auscultation bilaterally, no wheezes, no crackles, no accessory muscle use. HEART: Regular rate and rhythm, S1, S2 without murmur, rub or gallop. ABDOMEN: Obese, soft, nontender, nondistended, normoactive bowel sounds, no guarding, no rebound, no hepatosplenomegaly, no masses. EXTREMITIES: 2+ pulses, warm, well-perfused, no edema. Laboratory Results - last 24 hr 06/30/19 06/30/19 07/01/19 16:43 22:06 05:18 WBC RBC Hgb Hct MCV MCH MCHC RDW Plt Count MPV Absolute Neuts (auto) Neutrophils % Neutrophils % (Manual) Band Neutrophils % Lymphocytes % Lymphocytes % (Manual) Monocytes % Monocytes % (Manual) Eosinophils % Eosinophils % (Manual) Basophils % Basophils % (Manual) Myelocytes % (Man) Promyelocytes % (Man) Blast Cells % (Manual) Nucleated RBC % Metamyelocytes Hypochromia Platelet Estimate Polychromasia Poikilocytosis Anisocytosis Microcytosis Macrocytosis Sodium 135 L Potassium 4.5 Chloride 98 Carbon Dioxide 30 Anion Gap 8 BUN 15.9 Creatinine 0.9 Est GFR (CKD-EPI)AfAm 130.52 Est GFR (CKD-EPI)NonAf 112.62 POC Glucometer 170 250 Random Glucose 212 H Calcium 8.8 Phosphorus 4.6 Magnesium 2.2 Triglycerides 500 H 07/01/19 07/01/19 07/01/19 05:30 06:14 10:58 WBC 8.9 RBC 5.39 Hgb 15.1 Hct 44.0 MCV 81.7 MCH 27.9 MCHC 34.2 RDW 13.8 Plt Count 297 MPV 9.3 Absolute Neuts (auto) 6.5 Neutrophils % 72.9 Neutrophils % (Manual) 67.3 Band Neutrophils % 0.0 Lymphocytes % 15.0 Lymphocytes % (Manual) 17.8 Monocytes % 8.5 Monocytes % (Manual) 7 Eosinophils % 2.8 Eosinophils % (Manual) 3.0 Basophils % 0.8 Basophils % (Manual) 0.0 Myelocytes % (Man) 0 Promyelocytes % (Man) 0 Blast Cells % (Manual) 0 Nucleated RBC % 0 Metamyelocytes 0 Hypochromia 0 Platelet Estimate Normal Polychromasia 0 Poikilocytosis 0 Anisocytosis 0 Microcytosis 0 Macrocytosis 0 Sodium Potassium Chloride Carbon Dioxide Anion Gap BUN Creatinine Est GFR (CKD-EPI)AfAm Est GFR (CKD-EPI)NonAf POC Glucometer 227 263 Random Glucose Calcium Phosphorus Magnesium Triglycerides ASSESSMENT AND PLAN: This is a 34 year old man with no significant medical history who presented to the ED with epigastric abdominal pain. 1. Acute pancreatitis secondary to hypertriglyceridemia - Improved - Triglycerides 500 this AM - Continue Lopid 2. Uncontrolled type 2 DM - HbA1c 10.9 - AM glucose 227 - Continue Levemir, Novolog sliding scale - Weight loss, diet modification, diabetic education 3. HTN - Continue lisinopril 4. Morbid obesity with BMI 41.3 5. Disposition - Ok for discharge home
== END 2019-07-01 11:30 | disposition home or self-care (01) | DRG 282 ==
LOC: JER 16:34 → JERBED 21:51 → JICU 06-27 02:10
PROVIDERS: ADMIT Internal Medicine; ATTEND Internal Medicine
DX: K85.90 Acute pancreatitis without necrosis or infection, unspecified (principal); E66.01 Morbid (severe) obesity due to excess calories; Z68.41 Body mass index [BMI] 40.0-44.9, adult; I10 Essential (primary) hypertension; E78.1 Pure hyperglyceridemia; K76.0 Fatty (change of) liver, not elsewhere classified; R00.0 Tachycardia, unspecified; E11.65 Type 2 diabetes mellitus with hyperglycemia; R16.2 Hepatomegaly with splenomegaly, not elsewhere classified; D72.829 Elevated white blood cell count, unspecified
CPT/HCPCS: 36415; 71045-TC-FY; 74176-TC; 76705-TC; 80048; 80053; 80061; 80307; 81003; 82009; 82150; 82550; 82803; 82962; 83036; 83605; 83690; 83721; 83735; 84100; 84478; 84484; 85025; 85027; 86140; 87040; 87086; 93005; 93010; 97116-GP; 97161-GP; 99285-25; J0131; J7030

== ENCOUNTER 2021-09-20 21:05 | Emergency (ER) | payer BC, OTHER ==
[2021-09-20 21:23] VITALS: BP 140/79; PULSE 93; TEMP 97.8; BMI 43.9
[2021-09-20] MEDS ORDERED: IBUPROFEN 600 MG TABLET (FP) PO ONE ×2 (22:31→22:52)
[2021-09-23 00:06] LABS: SARS-CoV-2 NAA Not Detected (Not Detected)
== END 2021-09-20 23:11 | disposition home or self-care (01) ==
LOC: JERFT 21:05
DX: R51.9 Headache, unspecified (principal); R09.81 Nasal congestion; R05.1 Acute cough
CPT/HCPCS: 87804; 99283-25; C9803; U0003; U0005

== ENCOUNTER 2022-04-21 14:35 | Emergency (ER) | payer BC ==
[2022-04-21 14:44] VITALS: BP 142/93; PULSE 92; RESP 18; TEMP 98.2; BMI 43.5
[2022-04-21] MEDS ORDERED: KETOROLAC TROMETHAMINE 30 MG/1 ML VIAL IM ONE (15:21)
[2022-04-21] MEDS ORDERED: KETOROLAC TROMETHAMINE 30 MG/1 ML VIAL ONE (17:21)
== END 2022-04-21 17:22 | disposition home or self-care (01) ==
LOC: JERFT 14:35
PROC: 3E023GC Introduction of Other Therapeutic Substance into Muscle, Percutaneous Approach (ICD-10-PCS; principal; 2022-04-21)
DX: S39.012A Strain of muscle, fascia and tendon of lower back, initial encounter (principal); M62.830 Muscle spasm of back; X50.0XXA Overexertion from strenuous movement or load, initial encounter
CPT/HCPCS: 99284-25

== ENCOUNTER 2022-04-25 14:36 | Emergency (ER) | payer BC ==
[2022-04-25 15:00] VITALS: BP 123/82; PULSE 90; RESP 17; TEMP 98.4; BMI 43.5
[2022-04-25] MEDS ORDERED: KETOROLAC TROMETHAMINE 30 MG/1 ML VIAL IM ONE (16:00)
[2022-04-25] MEDS ORDERED: KETOROLAC TROMETHAMINE 30 MG/1 ML VIAL ONE (16:02)
== END 2022-04-25 16:44 | disposition home or self-care (01) ==
LOC: JERFT 14:36
PROC: 3E023GC Introduction of Other Therapeutic Substance into Muscle, Percutaneous Approach (ICD-10-PCS; principal; 2022-04-25)
DX: M54.31 Sciatica, right side (principal)
CPT/HCPCS: 99284-25

== ENCOUNTER 2024-03-26 04:06 | Emergency (ER) | payer BC ==
[2024-03-26 04:19] VITALS: BMI 43.5
[2024-03-26] MEDS ORDERED: ACETAMINOPHEN INJECTION 100 ML IVPB ONE (04:46)
[2024-03-26] MEDS: SODIUM CHLORIDE 0.9% 500 ML INFUS.BAG IV ONE ×2 (04:50→06:40)
[2024-03-26] MEDS: ACETAMINOPHEN 1000 MG/100 ML BAG IVPB ONE (04:50)
[2024-03-26 05:08] LABS: POTASSIUM 3.9 mmol/L (3.5-5.1)
[2024-03-26 05:10] LABS: ALBUMIN 3.8 g/dl (3.4-5.0); CALCIUM 8.9 mg/dL (8.5-10.1)
[2024-03-26 05:11] LABS: BLOOD UREA NITROGEN 11.1 mg/dL (7-18)
[2024-03-26 05:13] LABS: CREATININE 0.9 mg/dL (0.55-1.3)
[2024-03-26 05:15] LABS: BILIRUBIN,TOTAL 0.8 mg/dL (0.2-1); TOT PROT 8.1 g/dl (6.4-8.2)
[2024-03-26 05:36] LABS: EPI CELLS 8 /uL (0-25.1); HYALINE CASTS 0 /uL (0-3.1); URINE APPEARANCE CLEAR; URINE BACTERIA 4 /uL (0-1359); URINE BILIRUBIN NEGATIVE (NEGATIVE); URINE COLOR YELLOW; URINE GLUCOSE (UA) 3+ (NEGATIVE); URINE KETONE TRACE (NEGATIVE); URINE LEUK ESTERASE NEGATIVE (NEGATIVE); URINE NITRITE NEGATIVE (NEGATIVE); URINE PROTEIN 1+ (NEGATIVE); URINE RBC 15 /uL (0-23.9); URINE WBC 6 /uL (0-25.8)
[2024-03-26 05:38] LABS: BASO % 0.6 % (0-2.0); EOS % 2.2 % (0-4.5); HEMATOCRIT 47.1 % (35.4-49); HEMOGLOBIN 16.4 GM/dL (11.7-16.9); LYMPH % 10.3 % (8-40); MCH 28.4 pg (25.7-33.7); MCHC 34.9 g/dl (32.0-35.9); MEAN CELL VOLUME 81.4 fl (80-96); MEAN PLT VOLUME 9.7 fl (7.5-11.1); MONO % 9.7 % (3.8-10.2); NEUT % 77.2 % (42.8-82.8); PLATELET COUNT 192 10^3/uL (134-434); RBC 5.78 M/mm3 (4.00-5.60); RDW 14.2 % (11.9-15.9); WHITE BLOOD COUNT 15.9 K/mm3 (4.0-10.0)
[2024-03-26] MEDS ORDERED: KETOROLAC TROMETHAMINE 15 MG/ML VIAL IVPUSH ONE (06:56)
[2024-03-26 07:26] VITALS: BP 135/92; PULSE 106; RESP 18; TEMP 98.9
== END 2024-03-26 08:23 | disposition home or self-care (01) ==
LOC: JER 04:06
PROC: 3E033NZ Introduction of Analgesics, Hypnotics, Sedatives into Peripheral Vein, Percutaneous Approach (ICD-10-PCS; principal; 2024-03-26)
DX: K85.90 Acute pancreatitis without necrosis or infection, unspecified (principal); R10.31 Right lower quadrant pain; R00.0 Tachycardia, unspecified; R10.11 Right upper quadrant pain
CPT/HCPCS: 36415; 74177-TC; 80053; 81003; 82962; 83690; 85025; 99285-25; J0131; Q9967